=== PATIENT | female | born 1960 | race Caucasian/White ===

== ENCOUNTER 2020-07-27 08:23 | Outpatient (CLI) | payer BC, SELFPAY ==
[2020-07-27 09:47] LABS: Add Urine Microscopic? YES; Appearance Urine Clear (Clear); Bilirubin Urine Negative (Negative); Blood Urine 3+ (Negative); Color Urine Yellow (Yellow); Glucose Urine UA Negative (Negative); Ketones Urine Negative (Negative); Leukocyte Esterase Ur Negative (Negative); Nitrate Urine Negative (Negative); Protein Urine Negative (Negative); Urobilinogen Urine 0.2 mg/dL (0.2-1.0); pH Urine 6.5 (5.0-8.0)
[2020-07-27 09:51] LABS: Basophils Absolute Auto 0.03 K/mm3 (0.00-0.10); Basophils Percent Auto 0.5 % (0.0-1.0); Eosinophils Absolute Auto 0.05 K/mm3 (0.02-0.50); Eosinophils Percent Auto 0.8 % (1.0-6.0); Hematocrit 38.6 % (35.0-49.0); Hemoglobin 12.1 g/dL (12.0-15.0); Immature Granulocyte Absolute 0.01 K/mm3 (0.00-0.00); Immature Granulocyte Percent A 0.2 % (0.0-0.0); Lymphocytes Percent Auto 40.7 % (18.0-42.0); Mean Corpuscular HGB Conc 31.3 g/dL (32.0-36.0); Mean Corpuscular Hemoglobin 29.2 pg (27.0-31.0); Mean Corpuscular Volume 93.2 fL (78.0-102.0); Mean Platelet Volume 10.1 fl (9.2-11.8); Monocytes Absolute Auto 0.39 K/mm3 (0.10-0.90); Monocytes Percent Auto 6.6 % (2.0-11.0); Neutrophils Percent Auto 51.2 % (50.0-70.0); Platelet Count Result 316 K/mm3 (150-420); Red Blood Count 4.14 M/mm3 (4.20-5.40); Red Cell Distribution Width 13.7 % (11.6-14.4); White Blood Count 5.9 K/mm3 (4.8-10.8)
[2020-07-27 10:13] LABS: Bacteria Urine 2+ /hpf; RBC Urine 21-50 /hpf (0-2); Squamous Epithelial Cell Urine Few /hpf (Few); WBC Urine 0-3 /hpf (0-3)
[2020-07-27 10:14] LABS: Mucus Urine Few /lpf
[2020-07-27 10:32] LABS: Alanine Aminotransferase 26 U/L (14-59); Albumin Level 4.1 g/dL (3.4-5.0); Alkaline Phosphatase 84 U/L (46-116); Anion Gap 7 mmol/L (8-16); Aspartate Amino Transferase 16 U/L (15-37); Bilirubin,Total 0.2 mg/dL (0.00-1.00); Blood Urea Nitrogen 18 mg/dL (7-18); Calcium 8.8 mg/dL (8.5-10.1); Carbon Dioxide 31 mmol/L (21-32); Chloride 105 mmol/L (98-108); Cholesterol 213 mg/dL (0-200); Estimated Glomerular Filt Rate > 60; Free T3 2.46 pg/mL (2.18-3.98); Free T4 Free Thyroxine 0.76 ng/dL (0.76-1.46); Glucose 102 mg/dL (70-99); HDL Direct 63 mg/dL (40-60); LDL Cholesterol Calculated 127 mg/dL (<130); Osmolality Calculated 297 mOsm/kg (285-295); Potassium 4.1 mmol/L (3.5-5.1); Sodium 143 mmol/L (136-145); Thyroid Stimulating Hormone 1.91 uIU/mL (0.36-3.74); Total Protein 7.4 g/dL (6.4-8.2); Triglycerides 117 mg/dL (0-150)
== END 2020-07-27 08:24 | disposition home or self-care (01) ==
LOC: CHSLAB 08:27
PROVIDERS: PCP Internal Medicine; Visit Provider Internal Medicine
DX: Z00.00 Encounter for general adult medical examination without abnormal findings (principal); I10 Essential (primary) hypertension; I48.91 Unspecified atrial fibrillation
CPT/HCPCS: 36415; 80053; 80061; 81001; 84439; 84443; 84481; 85025

== ENCOUNTER 2020-08-01 16:02 | Outpatient (CLI) | payer BC, SELFPAY ==
--- NOTE | ~2020-08-01 | CT_ITS ---
EXAMINATION: CT abdomen pelvis wo con DATE: 08/01/2020 17:12 INDICATION: Hematuria TECHNIQUE: Computed tomography (CT) of the abdomen and pelvis was performed without intravenous contr ast. Automated exposure control and iterative reconstruction technique were employed. The dose-length product was 1152.77 mGy-cm. COMPARISON: None FINDINGS: Mild discoid atelectasis at the lingula and anterobasilar left lower lobe. Heart size is normal. No p ericardial or pleural effusion. 1 cm low-attenuation hepatic cyst along the gallbladder fossa. Small phrygian cap at the fundus of the gallbladder. Spleen, pancreas and bilateral adrenal glands are norm al. Kidneys and ureters are normal with no urolithiasis, hydroureteronephrosis or perinephric/uretera l stranding. Bladder is normal. The uterus is not identified and has likely been surgically resected. Bowels including the appendix are normal. Postoperative changes in the left inguinal region with mul tiple surgical clips extending along the left external iliac and common femoral vessels. No free intr aperitoneal gas or fluid. No pathologically enlarged abdominal or pelvic lymphadenopathy. Mild lumbar levocurvature with mild spondylosis. Fusiform intramuscular lipoma extending 12 mm craniocaudally wi thin the proximal left tensor fascia naveen muscle. IMPRESSION: 1. No urolithiasis or acute intra-abdominal/pelvic process. Reviewed, dictated and finalized at location A.
== END 2020-08-01 16:03 | disposition home or self-care (01) ==
LOC: CHSIMG 16:04
PROVIDERS: PCP Internal Medicine; Visit Provider Internal Medicine
DX: R31.9 Hematuria, unspecified (principal)
CPT/HCPCS: 74176

== ENCOUNTER 2021-07-22 06:48 | Emergency (ER) | payer BC, SELFPAY ==
[2021-07-22 07:22] VITALS: BP 147/74; PULSE 65; RESP 18; TEMP 35.8; O2SAT 100
--- NOTE | 2021-07-22 07:35 | ED.URI ---
HPI - URI/Sore Throat General Chief Complaint: Upper Respiratory Infection Stated Complaint: sore throat cough Time Seen by Provider: 07/22/21 07:05 Source: patient and RN notes reviewed Mode of arrival: ambulatory Limitations: no limitations History of Present Illness MD elicited complaint: cough and other (mild right earache) Pertinent past history: other (bronchitis) Onset (ago): day(s) (4) Severity: mild Pain scale (0-10): 0 Exacerbating factors: nothing Relieving factors: OTC cold medicine Associated symptoms: nasal congestion Related Data Home Medications Medication Instructions Recorded Confirmed diltiazem HCl 120 mg PO DAILY 07/22/21 07/22/21 escitalopram oxalate 20 mg PO DAILY 07/22/21 07/22/21 Allergies Allergy/AdvReac Type Severity Reaction Status Date / Time Cephalosporins Allergy Mild HIVES Verified 07/22/21 07:40 Review of Systems Review of Systems: All systems reviewed & are unremarkable except as noted in HPI and below ENT: Reports nasal congestion PMFSH Past Medical History Medical History Bronchitis Exam Const: General: no acute distress Orientation/consciousness: patient oriented x3 HENMT: Ears: external ears normal and TM's normal bilaterally (dull TMs bilateral.) General nose exam: Normal external nose present and Normal nares present Mouth: Yes moist mucous membranes Eyes: Conjunctivae: conjunctivae normal Pupils: Equal, round and reactive pupils present EOM: EOMs intact bilaterally Neck: Neck: normal visual inspection Chest: Chest palpation & inspection: normal inspection of the chest Resp: Effort & Inspection: normal respiratory effort Auscultation: clear to auscultation bilaterally Cardio: Rate: regular rate Rhythm: regular rhythm GI: GI Palp: Yes Soft to palpation (non-tender) Percussion: Yes normal to percussion : General: Yes bladder normal to palpation and Yes no CVA tenderness Back/Spine/Pelvis: Back: no CVA tenderness Skin: General skin exam: normal color Rashes: no rashes Neuro: General: patient oriented x3, moves all extremities, no meningeal signs, no focal motor deficits and CN's II-XI intact bilaterally Extrem: General: normal to inspection and no pedal edema Psych: Appearance: grossly normal and well kempt Mental Status: mental status grossly normal Affect: normal affect Attitude: cooperative Thought content: Yes Normal thought content present Course Course Emergency Course: Stable pt. mild cough, no acute wheezing or rhonchi. Reevaluation(s) Date: 07/22/21 Time: 07:35 Vital Signs Vital signs: Vital Signs Temperature 35.8 C L 07/22/21 07:22 Pulse Rate 65 07/22/21 07:22 Respiratory Rate 18 07/22/21 07:22 Blood Pressure 147/74 H 07/22/21 07:22 Pulse Oximetry 100 07/22/21 07:22 Temperature 35.8 C L 07/22/21 07:22 Pulse Rate 65 07/22/21 07:22 Respiratory Rate 18 07/22/21 07:22 Blood Pressure 147/74 H 07/22/21 07:22 Pulse Oximetry 100 07/22/21 07:22 MDM - URI/Sore Throat Differential Diagnosis Differential diagnosis: Likely upper respiratory infection, otitis media, sinusitis, viral infection, bronchitis and pharyngitis Medical Records Attestation: I reviewed the patient's medical records. Lab Data Attestation: I reviewed the patient's lab results. Labs: Lab Results 07/22/21 Range/Units 07:33 Grp A Beta Strep Ag Pending Critical Care Time Critical Care Time Critical Care Time: No Total Critical Care Time: 0 Discharge Plan Discharge Clinical Impression: Upper respiratory infection Patient Disposition: Home, Self-Care Condition: Stable Instructions: Antibiotic Form, Viral Syndrome (ED) Additional Instructions: Home. May RTC prn. PMD in 1-2 days. Rx below. Off work x 2 days. Prescriptions: New amoxicillin 875 mg tablet 875 mg PO Q12H Qty: 20 RF: 0 Mucinex DM 30-600 mg tablet extended release
[2021-07-22] MEDS: guaiFENesin 12 HR 600 MG TABCR PO (07:50)
== END 2021-07-22 08:04 | disposition home or self-care (01) ==
PROVIDERS: Emergency Provider Emergency Medicine; PCP Internal Medicine
DX: J06.9 Acute upper respiratory infection, unspecified (principal)
CPT/HCPCS: 87081; 87880; 99283; A9270

== ENCOUNTER 2021-08-22 10:23 | Outpatient (CLI) | payer BC, SELFPAY ==
[2021-08-22 10:41] LABS: Basophils Absolute Auto 0.02 K/mm3 (0.00-0.10); Basophils Percent Auto 0.3 % (0.0-1.0); Eosinophils Absolute Auto 0.06 K/mm3 (0.02-0.50); Hematocrit 40.7 % (35.0-49.0); Hemoglobin 13.4 g/dL (12.0-15.0); Immature Granulocyte Absolute 0.01 K/mm3 (0.00-0.00); Immature Granulocyte Percent A 0.2 % (0.0-0.0); Lymphocytes Absolute Auto 2.45 K/mm3 (1.10-4.50); Lymphocytes Percent Auto 41.6 % (18.0-42.0); Mean Corpuscular HGB Conc 32.9 g/dL (32.0-36.0); Mean Corpuscular Volume 91.3 fL (78.0-102.0); Mean Platelet Volume 9.4 fl (9.2-11.8); Monocytes Absolute Auto 0.48 K/mm3 (0.10-0.90); Monocytes Percent Auto 8.1 % (2.0-11.0); Neutrophils Absolute Auto 2.9 K/mm3 (1.7-7.2); Neutrophils Percent Auto 48.8 % (50.0-70.0); Platelet Count Result 308 K/mm3 (150-420); Red Blood Count 4.46 M/mm3 (4.20-5.40); Red Cell Distribution Width 13.8 % (11.6-14.4); White Blood Count 5.9 K/mm3 (4.8-10.8)
[2021-08-22 10:44] LABS: Add Urine Microscopic? YES; Appearance Urine Clear (Clear); Bilirubin Urine Negative (Negative); Blood Urine 3+ (Negative); Color Urine Yellow (Yellow); Glucose Urine UA Negative (Negative); Ketones Urine Negative (Negative); Leukocyte Esterase Ur Negative (Negative); Nitrate Urine Negative (Negative); Protein Urine Negative (Negative); Specific Grav Ur 1.025 (1.010-1.020); Urobilinogen Urine 0.2 mg/dL (0.2-1.0)
[2021-08-22 10:48] LABS: Bacteria Urine Trace /hpf; Squamous Epithelial Cell Urine Few /hpf (Few); WBC Urine None seen /hpf (0-3)
[2021-08-22 11:36] LABS: Alanine Aminotransferase 31 U/L (14-59); Alkaline Phosphatase 98 U/L (46-116); Anion Gap 9 mmol/L (8-16); Aspartate Amino Transferase 13 U/L (15-37); Bilirubin,Total 0.3 mg/dL (0.00-1.00); Blood Urea Nitrogen 22 mg/dL (7-18); Calcium 9.1 mg/dL (8.5-10.1); Carbon Dioxide 32 mmol/L (21-32); Chloride 103 mmol/L (98-108); Cholesterol 215 mg/dL (0-200); Estimated Glomerular Filt Rate > 60; Glucose 97 mg/dL (70-99); HDL Direct 67 mg/dL (40-60); LDL Cholesterol Calculated 128 mg/dL (<130); Osmolality Calculated 301 mOsm/kg (285-295); Potassium 4.5 mmol/L (3.5-5.1); Sodium 144 mmol/L (136-145); Thyroid Stimulating Hormone 1.82 uIU/mL (0.36-3.74); Total Protein 7.3 g/dL (6.4-8.2); Triglycerides 100 mg/dL (0-150)
== END 2021-08-22 10:24 | disposition home or self-care (01) ==
LOC: CHSLAB 10:27
PROVIDERS: PCP Internal Medicine; Visit Provider Internal Medicine
DX: Z00.00 Encounter for general adult medical examination without abnormal findings (principal)
CPT/HCPCS: 36415; 80053; 80061; 81001; 84443; 85025

== ENCOUNTER 2021-09-03 17:05 | Outpatient (CLI) | payer BC, SELFPAY ==
--- NOTE | ~2021-09-03 | XR_ITS ---
XR chest 2V DATE: 09/03/2021 17:25 INDICATION: Cough, shortness of breath TECHNIQUE: 2 views COMPARISON: None FINDINGS: Thoracic and lumbar scoliosis. Osteopenia. No pulmonary infiltrate or consolidation, pleural effusion or pulmonary vascular congestion or pneumo thorax. Normal heart size. Aortic calcification. IMPRESSION: No active cardiopulmonary disease Reviewed, dictated and finalized at location A.
== END 2021-09-03 17:06 | disposition home or self-care (01) ==
LOC: CHSIMG 17:06
PROVIDERS: PCP Internal Medicine; Visit Provider Internal Medicine
DX: R05.3 Chronic cough (principal)
CPT/HCPCS: 71046

== ENCOUNTER 2022-05-25 16:34 | Outpatient (CLI) | payer BC, SELFPAY ==
--- NOTE | ~2022-05-25 | XR_ITS ---
EXAM: XR hip RT min 2V DATE: 05/25/2022 17:08 HISTORY: ALL over RT hip pain traveling down towards RT knee x 1 yr . COMPARISON: None available. FINDINGS: Normal mineralization. No fracture or dislocation. No lytic or blastic lesion. Mild superi or hip joint space narrowing. No erosion or periosteal change. Soft tissues within normal limits. IMPRESSION: Mild right hip osteoarthritis. Reviewed, dictated and finalized at location K.
--- NOTE | ~2022-05-25 | XR_ITS ---
XR knee RT 3V 05/25/2022 17:09 Indication: Right knee pain Procedure: 3 views right knee Comparison: No prior studies for comparison. Findings: No fracture, subluxation or dislocation. No significant joint effusion. There is anatomic a lignment. Normal mineralization. Impression: 1: No significant bone or joint abnormality. Reviewed, dictated and finalized at location A. Impression: 1: No significant bone or joint abnormality.
== END 2022-05-25 16:35 | disposition home or self-care (01) ==
LOC: CHSIMG 16:36
PROVIDERS: PCP Internal Medicine; Visit Provider Internal Medicine
DX: M79.604 Pain in right leg (principal); M25.561 Pain in right knee
CPT/HCPCS: 73502; 73562

== ENCOUNTER 2022-08-19 16:30 | Outpatient (CLI) | payer BC, SELFPAY ==
--- NOTE | ~2022-08-19 | XR_ITS ---
EXAMINATION: XR chest 2V Exam Date/Time: 08/19/2022 16:40 CDT HISTORY: Cough X 1 WEEK Comparison: 09/03/2021. RESULT: Lines, tubes, and devices: None. Lungs and pleura: Clear. Cardiomediastinal silhouette: Stable. Other: No acute osseous or upper abdominal finding. IMPRESSION: No acute cardiopulmonary process. Reviewed, dictated and finalized at location K.
== END 2022-08-19 16:31 | disposition home or self-care (01) ==
LOC: CHSIMG 16:32
PROVIDERS: PCP Internal Medicine; Visit Provider Internal Medicine
DX: R05.9 Cough, unspecified (principal)
CPT/HCPCS: 71046

== ENCOUNTER 2022-08-21 12:26 | Outpatient (CLI) | payer BC, SELFPAY ==
[2022-08-21 12:39] LABS: Basophils Absolute Auto 0.03 K/mm3 (0.00-0.10); Basophils Percent Auto 0.2 % (0.0-1.0); Eosinophils Absolute Auto 0.01 K/mm3 (0.02-0.50); Eosinophils Percent Auto 0.1 % (1.0-6.0); Hematocrit 37.9 % (35.0-49.0); Hemoglobin 12.4 g/dL (12.0-15.0); Immature Granulocyte Absolute 0.11 K/mm3 (0.00-0.00); Immature Granulocyte Percent A 0.9 % (0.0-0.0); Lymphocytes Absolute Auto 4.15 K/mm3 (1.10-4.50); Lymphocytes Percent Auto 32.6 % (18.0-42.0); Mean Corpuscular HGB Conc 32.7 g/dL (32.0-36.0); Mean Corpuscular Hemoglobin 29.6 pg (27.0-31.0); Mean Corpuscular Volume 90.5 fL (78.0-102.0); Mean Platelet Volume 9.6 fl (9.2-11.8); Monocytes Absolute Auto 0.54 K/mm3 (0.10-0.90); Monocytes Percent Auto 4.2 % (2.0-11.0); Neutrophils Absolute Auto 7.9 K/mm3 (1.7-7.2); Platelet Count Result 328 K/mm3 (150-420); Red Blood Count 4.19 M/mm3 (4.20-5.40); Red Cell Distribution Width 13.8 % (11.6-14.4); White Blood Count 12.7 K/mm3 (4.8-10.8)
[2022-08-21 12:53] LABS: Alanine Aminotransferase 36 U/L (14-59); Alkaline Phosphatase 99 U/L (46-116); Anion Gap 8 mmol/L (8-16); Aspartate Amino Transferase 26 U/L (15-37); Bilirubin,Total 0.2 mg/dL (0.00-1.00); Blood Urea Nitrogen 19 mg/dL (7-18); Calcium 9.2 mg/dL (8.5-10.1); Carbon Dioxide 31 mmol/L (21-32); Chloride 102 mmol/L (98-108); Estimated Glomerular Filt Rate > 60; Glucose 140 mg/dL (70-99); Osmolality Calculated 296 mOsm/kg (285-295); Potassium 3.7 mmol/L (3.5-5.1); Sodium 141 mmol/L (136-145)
[2022-08-21 12:54] LABS: INR 1.1; Prothrombin Time 11.6 Seconds (9.50-12.10)
== END 2022-08-21 12:27 | disposition home or self-care (01) ==
LOC: CHSLAB 12:28
PROVIDERS: PCP Internal Medicine; Visit Provider Internal Medicine
DX: K92.1 Melena (principal)
CPT/HCPCS: 36415; 80053; 85025; 85610; 85730

== ENCOUNTER 2022-08-23 14:34 | Outpatient (CLI) | payer BC, SELFPAY ==
[2022-08-23 14:55] LABS: Occult Blood Negative (Negative)
[2022-08-23 14:55] LABS: Occult Blood Negative (Negative)
== END 2022-08-23 14:35 | disposition home or self-care (01) ==
LOC: CHSLAB 14:35
PROVIDERS: PCP Internal Medicine; Visit Provider Internal Medicine
DX: K92.1 Melena (principal)
CPT/HCPCS: 82272

== ENCOUNTER 2022-08-27 16:47 | Outpatient (CLI) | payer BC, SELFPAY ==
[2022-08-27 16:59] LABS: Hematocrit 36.8 % (35.0-49.0); Hemoglobin 11.8 g/dL (12.0-15.0)
== END 2022-08-27 16:48 | disposition home or self-care (01) ==
LOC: CHSLAB 16:49
PROVIDERS: PCP Internal Medicine; Visit Provider Internal Medicine
DX: D64.9 Anemia, unspecified (principal)
CPT/HCPCS: 36415; 85014; 85018

== ENCOUNTER 2022-09-12 08:11 | Outpatient (CLI) | payer BC, SELFPAY ==
[2022-09-12 08:27] LABS: Add Urine Microscopic? YES; Appearance Urine Clear (Clear); Basophils Absolute Auto 0.02 K/mm3 (0.00-0.10); Basophils Percent Auto 0.3 % (0.0-1.0); Bilirubin Urine Negative (Negative); Blood Urine 3+ (Negative); Color Urine Yellow (Yellow); Eosinophils Absolute Auto 0.08 K/mm3 (0.02-0.50); Eosinophils Percent Auto 1.2 % (1.0-6.0); Glucose Urine UA Negative (Negative); Hematocrit 37.1 % (35.0-49.0); Hemoglobin 11.7 g/dL (12.0-15.0); Immature Granulocyte Absolute 0.03 K/mm3 (0.00-0.00); Immature Granulocyte Percent A 0.4 % (0.0-0.0); Ketones Urine Negative (Negative); Leukocyte Esterase Ur Negative (Negative); Lymphocytes Percent Auto 43.3 % (18.0-42.0); Mean Corpuscular HGB Conc 31.5 g/dL (32.0-36.0); Mean Corpuscular Hemoglobin 29.5 pg (27.0-31.0); Mean Corpuscular Volume 93.5 fL (78.0-102.0); Mean Platelet Volume 9.6 fl (9.2-11.8); Monocytes Absolute Auto 0.57 K/mm3 (0.10-0.90); Monocytes Percent Auto 8.5 % (2.0-11.0); Neutrophils Absolute Auto 3.1 K/mm3 (1.7-7.2); Neutrophils Percent Auto 46.3 % (50.0-70.0); Nitrate Urine Negative (Negative); Platelet Count Result 317 K/mm3 (150-420); Protein Urine Negative (Negative); Red Blood Count 3.97 M/mm3 (4.20-5.40); Red Cell Distribution Width 14.2 % (11.6-14.4); Specific Grav Ur 1.015 (1.010-1.020); Urobilinogen Urine 0.2 mg/dL (0.2-1.0); White Blood Count 6.7 K/mm3 (4.8-10.8); pH Urine 6.5 (5.0-8.0)
[2022-09-12 08:54] LABS: Bacteria Urine Trace /hpf; Other Sediment Urine Spermatazoa /hpf; Squamous Epithelial Cell Urine Rare /hpf (Few); WBC Urine None seen /hpf (0-3)
[2022-09-12 09:15] LABS: Alanine Aminotransferase 27 U/L (14-59); Albumin Level 3.8 g/dL (3.4-5.0); Alkaline Phosphatase 97 U/L (46-116); Anion Gap 8 mmol/L (8-16); Aspartate Amino Transferase 17 U/L (15-37); Bilirubin,Total 0.3 mg/dL (0.00-1.00); Blood Urea Nitrogen 16 mg/dL (7-18); Calcium 8.5 mg/dL (8.5-10.1); Carbon Dioxide 29 mmol/L (21-32); Chloride 105 mmol/L (98-108); Cholesterol 215 mg/dL (0-200); Estimated Glomerular Filt Rate 58; Glucose 103 mg/dL (70-99); HDL Direct 54 mg/dL (40-60); LDL Cholesterol Calculated 139 mg/dL (<130); Osmolality Calculated 295 mOsm/kg (285-295); Potassium 3.8 mmol/L (3.5-5.1); Sodium 142 mmol/L (136-145); Triglycerides 109 mg/dL (0-150)
== END 2022-09-12 08:12 | disposition home or self-care (01) ==
PROVIDERS: PCP Internal Medicine; Visit Provider Internal Medicine
DX: Z00.00 Encounter for general adult medical examination without abnormal findings (principal)
CPT/HCPCS: 36415; 80053; 80061; 81001; 84443; 85025

== ENCOUNTER 2023-02-02 10:14 | Outpatient (CLI) | payer BC, SELFPAY ==
--- NOTE | ~2023-02-02 | XR_ITS ---
EXAMINATION: XR sinus min 3V DATE: 02/02/2023 10:39 INDICATION: Head congestion. TECHNIQUE: 5 views of the paranasal sinuses were obtained. COMPARISON: None. FINDINGS: There is mild upward deviation the nasal septum. There is moderate mucosal thickening in le ft maxillary sinus and mild mucosal thickening in right maxillary sinus. IMPRESSION: 1. Mucosal thickening in the maxillary sinuses, left worse than right. Reviewed, dictated and finalized at location A.
== END 2023-02-02 10:15 | disposition home or self-care (01) ==
LOC: CHSLAB 10:19
PROVIDERS: PCP Internal Medicine; Visit Provider Nurse Practitioner Family
DX: R09.81 Nasal congestion (principal); J32.0 Chronic maxillary sinusitis
CPT/HCPCS: 70220

== ENCOUNTER 2023-02-25 13:23 | Outpatient (CLI) | payer BC, SELFPAY ==
--- NOTE | ~2023-02-25 | DEXA_ITS ---
Bone Density Report Name: HUMPHREY BLANCO Age: 62 Sex: Female Ethnicity: White Date of : 1960 Indication: postmenopausal; screening for osteoporosis; height loss; cancer; hysterectomy; Referring Provider: Dexter Stanford Study: Bone densitometry was performed. Exam Date: February 25, 2023 Accession number: [id number] Bone Density: Region BMD T-score Z-score Classification AP Spine(L1, L3, L4) 0.900 -1.4 0.1 Osteopenia Femoral Neck (Left) 0.742 -1.0 0.4 Normal Total Hip (Left) 0.885 -0.5 0.6 Normal Femoral Neck (Right) 0.779 -0.6 0.7 Normal Total Hip (Right) 0.977 0.3 1.3 Normal Femoral Neck Mean 0.761 -0.8 0.6 Normal Total Hip Mean 0.931 -0.1 0.9 Normal World Health Organization criteria for BMD impression classify patients as: Normal (T-score at or above -1.0), Osteopenia (T-score between -1.0 and -2.5), or Osteoporosis (T-score at or below -2.5). 10-year Fracture Risk(1): Major Osteoporotic Fracture 6.6% Hip Fracture 0.3% Reported Risk Factors: [place] (), Neck BMD=0.742, BMI=40.7 (1) FRAX(R) Version 3.08. Fracture probability calculated for an untreated patient. Fracture probability may be lower if the patient has received treatment. Clinical Information Provided by Patient: Has used the following medications: Vitamin D, Calcium, multivitiam Has the following medical conditions: Cancer, Hysterectomy Patient maximum height was 64 Menopause Age: 51 No regular weight bearing exercise Drinks caffeinated beverages Onset of menses at age 14 Number of children 2 Impression: The patient has low bone mass, based on the Total Spine T-score. Discussion: BONE DENSITY IS LOW AT ONE OR MORE SKELETAL SITES. This patient's lowest T-score is low at one or more skeletal sites. It meets the World Health Organization's (WHO) criteria for ?low bone mass? (T-score between -1.0 and -2.5). The patient's 10-year risk of fracture as calculated by FRAX is less than the threshold where pharmacological therapy is recommended by the National Osteoporosis Foundation (NOF). However, all treatment decisions require clinical judgment and consideration of individual patient factors, including patient preferences, comorbidities, previous drug use, risk factors not captured in the FRAX model (e.g., frailty, falls, vitamin D deficiency, increased bone turnover, interval significant decline in bone density) and possible under or overestimation of fracture risk by FRAX. The patient should follow a healthful lifestyle (good nutrition with adequate calcium and vitamin D, and appropriate weight-bearing exercise). Follow-Up: Consider repeating this study in 2 to 3 years to reassess this patient's status, or sooner if there is some new clinical indication. Reported by: Dr. Hurley
== END 2023-02-25 13:24 | disposition home or self-care (01) ==
LOC: CHSIMG 13:30
PROVIDERS: PCP Internal Medicine; Visit Provider Internal Medicine
DX: M81.0 Age-related osteoporosis without current pathological fracture (principal); D64.9 Anemia, unspecified; M85.88 Other specified disorders of bone density and structure, other site
CPT/HCPCS: 77080

== ENCOUNTER 2023-07-16 13:42 | Outpatient (CLI) | payer BC, SELFPAY ==
--- NOTE | 2023-07-16 13:47 | ECG_ITS ---
Measurements Intervals [place] Rate: 54 P: 65 IN: 123 QRS: 54 QRSD: 113 T: 38 QT: 454 QTc: 431 Interpretive Statements SINUS BRADYCARDIA INTRAVENTRICULAR CONDUCTION DELAY MINIMAL Q WAVES- INFERIOR LEADS BASELINE ARTIFACT- II, III, AVF, V4-V6 BORDERLINE ECG NO PREVIOUS ECG AVAILABLE FOR COMPARISON Electronically Signed On 07-16-2023 20:44:26 CDT by Jacques Pierre D.O.
== END 2023-07-16 13:43 | disposition home or self-care (01) ==
LOC: CHSCARD 13:44
PROVIDERS: PCP Internal Medicine; Visit Provider Internal Medicine
DX: R07.9 Chest pain, unspecified (principal)
CPT/HCPCS: 93005

== ENCOUNTER 2023-08-05 12:25 | Outpatient (CLI) | payer BC, SELFPAY ==
--- NOTE | ~2023-08-05 | CT_ITS ---
EXAMINATION:CT diagnostic chest wo con DATE: 08/05/2023 14:58 INDICATION: Dyspnea. TECHNIQUE: Computed tomography (CT) of the chest was performed without intravenous contrast. Automate d exposure control and iterative reconstruction technique were employed. The dose-length product (DLP ) was 658.15 mGy-cm. COMPARISON: CT abdomen and pelvis 08/01/2020 FINDINGS: There is mild atelectasis in left upper lobe and right middle lobe. No pleural effusion. Th e heart size is normal. No pericardial effusion. There is levoscoliosis of upper thoracic spine. IMPRESSION: 1. No etiology for the patient's symptoms. Reviewed, dictated and finalized at location E.
--- NOTE | 2023-08-06 08:53 | WPDPFTINT ---
PFT Procedure Performed PFT Procedure Performed Spirometry with Pre/Post Bronchodilator Plethysmography (Lung Vol) Diffusing Cap (DLCO) Flow Vol Loop PFT Interpretation Lung volumes were measured with the body plethysmography method. The diminished expiratory reserve volume is related to obesity. The remaining lung volumes are unremarkable. Spirometry showed normal expiratory flow rates and a normal FEV1 to FVC ratio 76%. Following administration of a bronchodilator there was no significant increase in the expiratory flow rates. Lung diffusion capacity is within the normal range at 92%. The flow-volume loop is unremarkable. Impression: Spirometry, lung volumes, and lung diffusion capacity all within the normal range.
--- NOTE | 2023-08-09 11:54 | WPDSIXMINUTE ---
Six Minute Walk Procedure Procedure Performed Pulmonary Stress Test (6 min walk) Six Minute Walk Six Minute Walk: This is a 6 minute walk test. The test was performed and interpreted in accordance with the 2014 ERS/ATS task force guidelines. Findings: The patient's resting room air oxygen saturation measured by pulse oximetry was 96% and heart rate was 60 bpm. Patient ambulated for 488 meters and oxygen saturation remained 94 to 97%. Heart rate at the end of the study was 89 bpm. The patient did not qualify for supplemental oxygen at rest or with ambulation. There are no prior studies for comparison.
== END 2023-08-05 12:26 | disposition home or self-care (01) ==
PROVIDERS: PCP Internal Medicine; Visit Provider Physician Assistant
DX: R06.00 Dyspnea, unspecified (principal); R05.9 Cough, unspecified; Z87.891 Personal history of nicotine dependence
CPT/HCPCS: 71250; 94060; 94618; 94726; 94729

== ENCOUNTER 2023-08-27 10:20 | Outpatient (CLI) | payer BC, SELFPAY ==
[2023-08-27 11:29] LABS: SARS-CoV-2 RNA PCR Negative (Negative)
== END 2023-08-27 10:21 | disposition home or self-care (01) ==
LOC: CHSLAB 10:22
PROVIDERS: PCP Internal Medicine; Visit Provider Nurse Practitioner Family
DX: J06.9 Acute upper respiratory infection, unspecified (principal)
CPT/HCPCS: 87635

== ENCOUNTER 2023-09-21 08:31 | Outpatient (CLI) | payer BC, SELFPAY ==
--- NOTE | ~2023-09-21 | XR_ITS ---
XR knee LT min 4V 09/21/2023 09:00 INDICATION: Left knee pain PROCEDURE: 4 views left knee COMPARISON: No prior studies for comparison. FINDINGS: Fracture, dislocation or subluxation is not identified. No significant joint effusion. The soft tissues appear within normal limits. No foreign bodies are identified. IMPRESSION: 1: NO ACUTE BONE OR JOINT ABNORMALITY IDENTIFIED. Reviewed, dictated and finalized at location L. 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
== END 2023-09-21 08:32 | disposition home or self-care (01) ==
LOC: CHSIMG 08:34
PROVIDERS: PCP Internal Medicine; Visit Provider Orthopaedic Surgery
DX: M25.562 Pain in left knee (principal)
CPT/HCPCS: 73564

== ENCOUNTER 2023-10-07 08:51 | Outpatient (CLI) | payer BC, SELFPAY ==
--- NOTE | ~2023-10-07 | MR_ITS ---
MRI of the left knee Clinical history: Medial meniscal tear Technique: Coronal proton density and proton density-weighted images, sagittal proton-density and T2 fat-sat images, and axial proton-density fat-saturated images were acquired. Findings: Anterior and posterior cruciate ligaments are intact. Medial collateral ligament and the la teral collateral ligament complex are intact. Popliteus tendon is intact. Radial tear at the posterior root of the medial meniscus is present. No lateral meniscal tear seen. There is high-grade chondromalacia over the medial patellar facet. There is mild chondral thinning in the medial and lateral compartments. Extensor mechanism is intact. Small joint effusion present. [id number] Marti's cyst present. Impression: Radial tear at the posterior to the medial meniscus. 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 Small joint effusion with small to moderate Marti's cyst. Reviewed, dictated and finalized at [facility]. HOUSEKEEPER Impression: Radial tear at the posterior to the medial meniscus. 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 Small joint effusion with small to moderate Marti's cyst.
== END 2023-10-07 08:52 | disposition home or self-care (01) ==
LOC: CHSIMG 08:52
PROVIDERS: PCP Internal Medicine; Visit Provider Orthopaedic Surgery
DX: S89.92XA Unspecified injury of left lower leg, initial encounter (principal); S83.242A Other tear of medial meniscus, current injury, left knee, initial encounter; M22.42 Chondromalacia patellae, left knee; M25.462 Effusion, left knee; M71.22 Synovial cyst of popliteal space [Baker], left knee
CPT/HCPCS: 73721

== ENCOUNTER 2023-12-01 00:21 | Day surgery (SDC) | payer BC, SELFPAY ==
[2023-11-24 17:52] VITALS: BMI 41.0
--- NOTE | 2023-11-25 07:29 | SUR.PREOP ---
Addendum entered by Marbella Phillips RN 11/25/23 07:34: hold spironolactone morning of surgery Original Note: Report to the Outpatient Waiting Room, entrance under the green pavilion located off [facility], at time 1015 on date 12/01/23. Planned Procedure Time: 1215. Time changes happen often and if your time is changed the preop area will call you the afternoon before. - You and your visitor will be asked to self-screen and do not enter if you have any COVID symptoms. - A mask is optional within the hospital at this time. Patients may have clear liquids (water, carbonated beverages, clear teas, apple juice) until 3 hours prior to surgery with a maximum of 20 ounces. - No food from midnight until time of surgery clear liquid before 0915am - Infants may have breast milk until 4 hours before surgery, formula 6 hours prior to surgery. - Children will be allowed to drink immediately following surgery. If applicable, please bring a bottle or sippy cup to assist with drinking. Juice, water, soda, and popsicles are readily available. For infants on formula, please bring formula the day of surgery. Pacifiers are allowed. Take the following medications with a SIP of water the morning of surgery: __no morning medications day of surgery____ DO NOT STOP ANY OF YOUR OTHER PRESCRIPTION MEDICATIONS PRIOR TO SURGERY ?EXCEPT THE FOLLOWING Medications to discontinue per physician hold Xarelto per MD, supplements/vitamins 3 days prior. hold losartan/HCTZ morning of surgery Date to take last dose Please no make-up, nail saudi [place]ian, hairspray, perfume, deodorant, or body powder the day of surgery. No jewelry (including any body piercings) or valuables the day of surgery, leave them at home. Please take a shower or bath the night before, or the morning of, surgery with an antibacterial soap. Wear comfortable, loose fitting clothing. Children are encouraged to wear pajamas. - Jewelry must be removed prior to entering the operating room. Rings and piercings that are not removed may be cut off. - The hospital will not accept responsibility for valuables. - Please leave all valuables, including medications, at home the day of surgery. If you are going home after surgery, a licensed diesel pile driver operator must drive you home. - NO public transportation without another adult if you receive anesthesia. - We recommend that an adult stay with you for 24 hours following discharge. - We also recommend that you do not drive, make important decision, drink alcoholic beverages, or take any drugs that were not prescribed by your health care provider for at least 24 hours after your discharge time. For Pediatric surgeries, we recommend two adults accompany the child home. Follow any additional instructions given to you from your surgeon. If you or anyone in your household have experienced Covid symptoms in the past week, please notify your surgeon or the nurse liaison at the phone number below for possible testing. Telephone instructions given to __patient__and asked if any additional questions and then verbalized understanding. Patient advised to call surgeon office or pre surgery nurse liaison [phone] if any additional questions.
[2023-12-01] VITALS (9 sets, daily range): BP systolic 103–159; BP diastolic 62–83; PULSE 56–72; RESP 10–16; TEMP 36.1–36.4; O2SAT 92–100
--- NOTE | 2023-12-01 07:18 | WPDHPUPDATE1 ---
History and Physical Update Update Date/Time: 12/01/23 07:18 History and Physical has been reviewed, including an updated exam of the patient. There are NO changes in the patient's condition. Risks, benefits, and alternatives have been discussed and questions answered. Patient agrees to proceed with procedure.
[2023-12-01] MEDS: LACTATED RINGERS 1,000 ML 30 ML IV CONT ×2 (11:00→14:03)
[2023-12-01] MEDS: CELECOXIB 200 MG CAPSULE PO (12:00)
[2023-12-01] MEDS: ACETAMINOPHEN 500 MG TABLET 1000 MG PO (12:00)
--- NOTE | 2023-12-01 12:47 | WPDANESEPPF ---
Anes - Initial Pre Proc Eval Procedure: Operation Date: 12/01/23 12:15 Proposed Procedures p Left Knee Arthroscopy, Proceed As Indicated - Pablo Ortiz MD Date/Time: 12/01/23 12:47 Surgeon: Pablo Ortiz MD Pre Op Diagnosis: Left Knee medial Meniscus tear Patient Data Age: 63 Gender: F Height: 1.63 m Weight: 108.3 kg Last Vital Signs Temp 36.1 C L 12/01/23 12:24 Pulse 72 12/01/23 12:24 Resp 16 12/01/23 12:24 BP 150/72 H 12/01/23 12:24 Pulse Ox 99 12/01/23 12:24 O2 Del Method Room Air 12/01/23 12:24 Allergies Allergy/AdvReac Type Severity Reaction Status Date / Time Cephalosporins Allergy Mild HIVES Verified 11/24/23 08:29 Home Medications Medication Instructions Recorded Confirmed Type diltiazem HCl 120 mg 120 mg PO DAILY 07/22/21 12/01/23 History capsule,extended release 24 hr escitalopram oxalate 20 mg tablet 20 mg PO DAILY 07/22/21 12/01/23 History ascorbic acid (vitamin C) 500 mg 500 mg PO DAILY 06/29/23 12/01/23 History tablet cholecalciferol (vitamin D3) 125 125 mcg PO DAILY 06/29/23 12/01/23 History mcg (5,000 unit) tablet magnesium 250 mg tablet 250 mg PO DAILY 06/29/23 12/01/23 History rivaroxaban 20 mg tablet (Xarelto) 20 mg PO DAILY 06/29/23 12/01/23 History vitamin B complex (B 1 tablet PO DAILY 06/29/23 12/01/23 History Complex-Vitamin B12 tablet) calcium citrate 250 mg PO BID 07/02/23 12/01/23 History spironolactone 25 mg tablet 25 mg PO DAILY 10/21/23 12/01/23 History losartan 100 1 tablet PO DAILY 11/25/23 12/01/23 History mg-hydrochlorothiazide 12.5 mg tablet chlorhexidine gluconate 4 % 1 applic topical DAILY #237 mL 11/30/23 12/01/23 Rx topical liquid (Hibiclens) hydrocodone 5 mg-acetaminophen 325 1 tablet PO Q12H PRN pain #20 tabs 12/01/23 Rx mg tablet Patient hx anesthesia problems: none Family hx anesthesia problems: none Results Review: All pre-operative results and documents have been reviewed as part of the pre-operative evaluation. [facility] Past Medical History Medical History Bronchitis Colonic polyp Ear drum wound Headache Hypertension Left knee pain Melanoma Surgical History Surgical History H/O breast biopsy H/O section H/O: hysterectomy Family History Family History Father Heart disease Mother Diabetes mellitus Heart disease Cancer of unknown origin Sibling Diabetes mellitus Other Diabetes mellitus Grandparent Cancer of unknown origin Diabetes mellitus Social History Social History Social History: quit smoking 1982 Smoking status: Never smoker Alcohol intake: never Substance use type: does not use Do You Feel Safe in your Home?: Yes Lack of Transportation: No Lack of Food: Never True Current Housing: I Have Housing Concerned About Future Housing: No Difficulty Paying Gas/Electric Bills: No Difficulty Paying for Meds: No Currently Unemployed: No Education: High School Diploma/GED Difficulty w/ Childcare or Family Care: No Living arrangements: with family Gender identity (if verbalized by the patient): Female Anes - Eval Final PreProcedure Day of Procedure 12/01/23 12:47 Patient weight: morbidly obese Heart: regular rate and rhythm Lungs: decreased breath sounds Airway: Mallampati scale class II Neurological: alert and oriented Last oral intake: >/= 8 hours ASA classification: III Emergent: no Anesthetic plan: proceed Anesthesia type and monitoring: general LMA and standard monitoring Results Review: All pre-operative results and documents have been reviewed as part of the pre-operative evaluation. Informed Consent: The patient's anesthetic plan and its attendant risks and benefits were discuss
[2023-12-01] MEDS: CLINDAMYCIN 900 MG/D5W 50 ML 900 MG/50 ML PIGGYBACK 50 MG IVPB (12:59)
[2023-12-01] MEDS: BUPivacaine HCL 0.5% 10 ML AMP 30 ML INFILTRATE (13:19)
--- NOTE | 2023-12-01 14:05 | W.PM.PROC2 ---
Procedure Note - Detailed Date of Procedure 12/01/23 Pre-op Diagnosis Left Knee medial Meniscus tear Post-op Diagnosis Same (with lateral meniscus tear as well) Procedure Performed LEFT KNEE SCOPE Surgeon Pablo Ortiz MD Anesthesia General Description of Procedure PATIENT WAS TAKEN TO THE OR. LEFT LEG WAS PREPPED AND DRAPED STERILE. TROCARS WERE PLACED IN THE USUAL FASHION. CAMERA WAS INTRODUCED. THERE WAS A LOOSE BODY IN THE SUPRA PATELLA POUCH. THERE WAS CHONDROMALACIA TO THE PATELLA FEMORAL JOINT. THERE WAS A LOT OF SYNOVITIS IN ALL COMPARTMENTS. THE MEDIAL COMPARTMENT SHOWED CHONDROMALACIA WITH A CHONDRAL DEFECT TO THE MEDIAL FEMORAL CONDYLE. THERE WAS NO FULL THICKNESS DEFECT. A SHAVER WAS USED TO PREFORM A CHONDROPLASTY. THERE WAS A COMPLEX MEDIAL MENISCUS TEAR. THE TEAR WAS RESECTED WITH A BITER AND A SHAVER DOWN TO A SMOOTH BASE. ABOUT 20% OF THE MENISCUS WAS REMOVED. THE ACL WAS INTACT. THE LATERAL MENISCUS WAS TORN AND WAS RESECTED AT THE MID SUBSTANCE. THE LATERAL COMPARTMENT HAD GRADE 2 CHONDROMALACIA. CHONDROPLASTY WAS PREFORMED. A SYNOVECTOMY WAS PREFORMED WELL. THE PATELLO FEMORAL JOINT UNDERWENT CHONDROPLASTY. THERE WAS GRADE 3 AND 4 CHONDROMALACIA IN PART OF THE TROCHLEA AND PART OF THE PATELLA. SYNOVECTOMY WAS PREFORMED IN THE SUPERIOR MEDIAL COMPARTMENT. THE WOUNDS WERE APPROXIMATED WITH 4.0 NYLON. STERILE DRESSING WAS APPLIED. PATIENT WAS EXTUBATED. Estimated Blood Loss -5.0 Complications No immediate complications Condition Stable Disposition PACU
== END 2023-12-01 16:00 | disposition home or self-care (01) ==
PROVIDERS: PCP Internal Medicine; Visit Provider Orthopaedic Surgery
PROC: (CPT 29870; principal; 2023-12-01 12:15)
DX: S83.232A Complex tear of medial meniscus, current injury, left knee, initial encounter (principal); S83.282A Other tear of lateral meniscus, current injury, left knee, initial encounter; M22.42 Chondromalacia patellae, left knee; M65.862 Other synovitis and tenosynovitis, left lower leg; X50.0XXA Overexertion from strenuous movement or load, initial encounter; I10 Essential (primary) hypertension; E66.01 Morbid (severe) obesity due to excess calories; Z68.41 Body mass index [BMI] 40.0-44.9, adult; Z79.01 Long term (current) use of anticoagulants; Z87.891 Personal history of nicotine dependence
CPT/HCPCS: 29880; A9270; J1100; J1170; J2250; J2405; J2704; J7120

== ENCOUNTER 2024-05-24 14:15 | Outpatient (CLI) | payer BC, SELFPAY ==
--- NOTE | ~2024-05-24 | US_ITS ---
US thyroid INDICATION: Right-sided tenderness TECHNIQUE: Real-time sonographic images of the thyroid gland were obtained. COMPARISON: No prior studies for comparison. FINDINGS: The right thyroid lobe measures 3.9 x 1.3 x 1.4 cm. The left thyroid lobe measures 3.4 x 1 x 1.4 cm. There is a 5 mm cyst of the right thyroid lobe, likely of no clinical significance. There is normal echotexture and echogenicity throughout the thyroid gland. No suspicious nodules identified . Normal vascular flow is present. IMPRESSION: 1. Unremarkable thyroid ultrasound. Reviewed, dictated and finalized at location B.
== END 2024-05-24 14:16 | disposition home or self-care (01) ==
PROVIDERS: PCP Internal Medicine; Visit Provider Internal Medicine
DX: E07.9 Disorder of thyroid, unspecified (principal)
CPT/HCPCS: 76536

== ENCOUNTER 2024-10-31 07:23 | Outpatient (CLI) | payer BC, SELFPAY ==
--- NOTE | ~2024-10-31 | US_ITS ---
Limited Abdominal Sonogram: Real-time sonographic imaging of the right upper quadrant was performed. Clinical History: Abdominal pain Findings: The liver appears mildly heterogeneous with no evidence of solid mass lesion or bile duct dilatation. Probable small hepatic cyst present. Main portal vein demonstrates normal direction of fl ow. The gallbladder is well distended, and demonstrates apparent stones at the gallbladder neck. Ther e is borderline gallbladder wall thickening. The common bile duct measures 3 mm. The visualized panc reas, aorta, and IVC are unremarkable. Impression: Cholelithiasis with distended gallbladder with borderline gallbladder wall thickening. Positive sonog raphic Cabrera's sign. Correlate for early/mild acute cholecystitis. Consider HIDA scan as indicated. Suspected fatty infiltration of liver or possibly other chronic liver disease. Reviewed, dictated and finalized at [facility]. O INTELLIGENCE OPERATOR Impression: Cholelithiasis with distended gallbladder with borderline gallbladder wall isidro lafleur. Positive sonographic Cabrera's sign. Correlate for early/mild acute chol ecystitis. Consider HIDA scan as indicated. Suspected fatty infiltration of liver or possibly other chronic liver disease.
== END 2024-10-31 07:24 | disposition home or self-care (01) ==
LOC: CHSIMG 07:26
PROVIDERS: PCP Internal Medicine; Visit Provider Internal Medicine
DX: R10.9 Unspecified abdominal pain (principal); K80.20 Calculus of gallbladder without cholecystitis without obstruction
CPT/HCPCS: 76705

== ENCOUNTER 2024-12-01 08:06 | Outpatient (CLI) | payer BC, SELFPAY ==
--- NOTE | 2024-12-01 08:00 | ECG_ITS ---
Test Date: 2024-12-01 08:40:53 Measurements Intervals Copen Rate: 52 P: 45 SC: 115 QRS: 25 QRSD: 108 T: 37 QT: 415 QTc: 388 Interpretive Statements SINUS BRADYCARDIA WITH SHORT SC INTERVAL MODERATE INTRAVENTRICULAR CONDUCTION DELAY [105+ ms QRS DURATION, 80+ ms Q/S IN V1/V2, NO Q AND 60+ ms R IN I/aVL/V5/V6] No previous ECG available for comparison Electronically Signed On 12-01-2024 14:37:19 CANDY PACKER by Lesa Haynes M.D.
--- OUTSIDE RECORDS SUMMARY | 2024-12-01 08:20 | XMS_ITS | Patient Health Summary ---
Author Organization [facility] Address [address] [place] [address] Care Team Providers Care Materials Management Manager Name Role Phone Nahid Kim MD Primary Care Provider [phone] Note from [facility],non-owned Affiliates and Associated Physician Practices is amultiple site organization consisting of ambulatory clinics and hospital sitesin [place], [place], [place] and [place]. This disclosure is being madepursuant to the Care Everywhere program and may not contain all information available regarding this patient. Last updated 18.[facility] Allergies * Cephalexin Medications * Be aware that medications may not be up to date on this document. Alwaysverify current medications with the patient. * escitalopram (LEXAPRO) 20 MG tablet Take 20 mg by mouth once daily * benzonatate (TESSALON) 100 MG capsule(Started 11/15/2017) Take 1 capsule by mouth 3 times daily as needed for Cough * albuterol HFA (PROVENTIL;VENTOLIN;PROAIR) 108 (90 BASE) MCG/ACT inhaler (Started 11/15/2017) Inhale 2 puffs by mouth every 6 hours as needed for Cough Social History Tobacco Use Types Packs/Day Years Used Date Smoking Tobacco: Former Cigarettes Q uit: 1984 Smokeless Tobacco: Never Sex and Gender Information Value Date Recorded Sex Assigned at Not on file Gender Identity Not on file Sexual Orientation Not on file Last Filed Vital Signs Vital Sign Reading Time Taken Comments Blood Pressure 130/80 11/15/2017 12:25 PM COMMERCIAL LITIGATION ATTORNEY Pulse 60 11/15/2017 12:25 PM COMMERCIAL LITIGATION ATTORNEY Temperature 36.8 ??C (98.2 ??F) 11/15/2017 12:[address] Respiratory Rate 16 11/15/2017 12:25 PM COMMERCIAL LITIGATION ATTORNEY Oxygen Saturation 98% 11/15/2017 12:25 PM COMMERCIAL LITIGATION ATTORNEY Inhaled Oxygen Concentration - - Weight 90.7 kg (200 lb) 11/15/2017 12:25 PM COMMERCIAL LITIGATION ATTORNEY Height 163.8 cm (5' 4.5 ) 11/15/2017 12:25 PM CS T Body Mass Index 33.8 11/15/2017 12:25 PM COMMERCIAL LITIGATION ATTORNEY Procedures * INFLUENZA A+B - POINT OF CARE (AMB)(Performed 11/15/2017) Performed for Acute bronchitis, unspecified organism Results * INFLUENZA A+B - POINT OF CARE (AMB) (11/15/2017) Influenza A Antigen Rapid Negative Negative Influenza B Antigen Rapid Negative Negative Influenza Internal Control yes NEGATIVE - POSITIVE Influenza Lot Number [id number] Influenza Expiration Date 07/16/19 Other NASOPHARYNGEAL SWAB / Unknown 11/15/2017 Salima Verdugo AUTHORIZATION MANAGER-OPHTHALMIC SURGICAL ASSISTANT LAB - POINT OF CA RE ORDERABLES Care Teams Materials Management Manager Relationship Specialty Start Date End Date Nahid Kim MD PCP - General Internal Medicine 11/15/17
--- OUTSIDE RECORDS SUMMARY | 2024-12-01 08:20 | XMS_ITS | Clinical Summary ---
Author Organization [facility] al Address [address] [place] [address] Care Team Providers Care Evp Managing Director Name Role Phone Dexter Stanford MD Primary Care Provider Allergies Active Allergy Reactions Criticality Noted Date Comments Cephalexin Hives,Rash Medium Latex Rash Medium 12/02/2023 If bandaid is on too long Medications escitalopram (LEXAPRO) 20 mg tablet Take 1 tablet (20 mg total) by mouth every morning Active VITAMIN B COMPLEX ORAL Take 1 capsule by mouth heel shaper before breakfast Active ascorbic acid (vitamin C) 1,000 mg tablet Take 1 tablet (1,000 mg total) by mouth heel shaper before breakfast Active dilTIAZem CD 120 mg 24 hr capsule TAKE 1 CAPSULE BY MOUTH EVERY DAY 90 capsule 3 4 Active azelastine (ASTELIN) 137 mcg (0.1 %) nasal spray Administer 1 spray into affected nostril(s) heel shaper before breakfast [address] (PROTONIX) 40 mg EC tablet Take 1 tablet (40 mg total) by mouth heel shaper before breakfast 4 Active calcium-vits E8-A-D5-mineral s 166.75 mg- 166.75 unit capsule Take 1 capsule by mouth heel shaper before breakfast 4 Active vit C/vit E/lutein/min/om ega-3 (OCUVITE ORAL) Take 1 tablet by mouth heel shaper before breakfast Active cyanocobalamin, vitamin B-12, (VITAMIN B-12 ORAL) Take 1 tablet by mouth heel shaper before breakfast Active MULTIVITAMIN ORAL Take 1 tablet/capsule by mouth heel shaper before breakfast Active BIOTIN ORAL Take 1 capsule by mouth heel shaper before breakfast Active omega-3s/dha/ep a/fish oil (OMEGA 3 ORAL) Take 1 capsule by mouth heel shaper before breakfast Active Xarelto 20 mg tablet TAKE 1 TABLET BY MOUTH EVERY DAY 90 tablet 2 4 Active losartan-hydroC HLOROthiazide (HYZAAR) 100-12.5 mg per tablet Take 1 tablet by mouth nightly 4 Active oxyCODONE (ROXICODONE) 5 mg immediate release tabletIndicatio ns:Pain Take 1 tablet (5 mg total) by mouth every 8 (eight) hours as needed for pain 20 tablet 4 Active cyclobenzaprine (FLEXERIL) 5 mg tablet Take 1 tablet (5 mg total) by mouth 3 (three) times a day 50 tablet 4 Active acetaminophen 500 mg capsule Take 2 capsules (1,000 mg total) by mouth every 6 (six) hours 4 Active albuterol HFA (PROVENTIL HFA,VENTOLIN HFA,PROAIR HFA) 90 mcg/actuation inhaler INHALE 2 PUFFS BY MOUTH EVERY 4 TO 6 HOURS NEEDED FOR SHORTNESS OF BREATH OR FOR WHEEZE 4 Active losartan (COZAAR) 100 mg tablet Take 1 tablet (100 mg total) by mouth daily 4 Active Active Problems Problem Noted Date Diagnosed Date Malignant neoplasm of upper- outer quadrant of right female breast 08/31/2024 Malignant neoplasm of upper- outer quadrant of right breast in female, estrogen receptor positive 05/20/2024 Palpitations 08/22/2020 Nasal congestion 12/14/2019 Assessment & Plan (12/14/2019 3:37 PM DIRECTOR INDEX): She will try to keep her nasal passages moist by using simply Saline liberally throughout the day and the evening to help prevent another episode of epistaxis. She will adjust her humidity setting and climate line temperature as needed. Obstructive sleep apnea 10/12/2019 Assessment & Plan (12/14/2019 3:32 PM DIRECTOR INDEX): She will wear her APAP set from 4-20 cm water pressure nightly. She will try to increase her sleep time to 7-8 hours nightly. Reviewed with the patient that untreated sleep apnea can increased risk of irregular heart rhythm, congestive heart failure, heart attack and stroke. Assessment & Plan (10/12/2019 4:31 PM DIRECTOR INDEX): Reviewed and discussed with the patient that she has moderate to severe obstructive sleep apnea. Reviewed with patient that untreated sleep apnea increases her risk of heart attack, stroke, irregular heart rhythm, congestive heart failure, diabetes, weight gain and memory loss. She will be placed on a Pap set from 4-20 cm water pressure with a goal of therapy to use her machine nightly for 7-8 hours to get maximal health benefits. Snoring 08/18/2019 Assessment & Plan (08/18/2019 12:09 PM CDT): Reviewed and discussed with the patient the risk of untreated sleep apnea to include increased risk of heart attack, stroke, hypertension, irregular heart rhythm, congestive heart failure, diabetes, weight gain and dementia. She will have a home sleep study to evaluate for sleep apnea. Fatigue 08/18/2019 Assessment & Plan (08/18/2019 12:09 PM CDT): Reviewed and discussed with the patient the risk of untreated sleep apnea to include increased risk of heart attack, stroke, hypertension, irregular heart rhythm, congestive heart failure, diabetes, weight gain and dementia. She will have a home sleep study to evaluate for sleep apnea. Paroxysmal atrial fibrillation (CMS/HCC) 019 Assessment & Plan (10/12/2019 4:31 PM DIRECTOR INDEX): Reviewed and discussed with the patient that she has moderate to severe obstructive sleep apnea. Reviewed with patient that untreated sleep apnea increases her risk of heart attack, stroke, irregular heart rhythm, congestive heart failure, diabetes, weight gain and memory loss. She will be placed on a Pap set from 4-20 cm water pressure with a goal of therapy to use her machine nightly for 7-8 hours to get maximal health benefits. Assessment & Plan (08/18/2019 12:09 PM CDT): Reviewed and discussed with the patient the risk of untreated sleep apnea to include increased risk of heart attack, stroke, hypertension, irregular heart rhythm, congestive heart failure, diabetes, weight gain and dementia. She will have a home sleep study to evaluate for sleep apnea. Class 2 severe obesity due t o excess calories with serious comorbidity and body mass index (BMI) of 37.0 to 37.9 in adult 08/18/2019 Assessment & Plan (12/14/2019 3:33 PM DIRECTOR INDEX): She will practice good health habits trying to eat more vegetables, fruit and lean protein her diet to help promote weight loss. Assessment & Plan (10/12/2019 4:31 PM DIRECTOR INDEX): Reviewed and discussed with the patient that she has moderate to severe obstructive sleep apnea. Reviewed with patient that untreated sleep apnea increases her risk of heart attack, stroke, irregular heart rhythm, congestive heart failure, diabetes, weight gain and memory loss. She will be placed on a Pap set from 4-20 cm water pressure with a goal of therapy to use her machine nightly for 7-8 hours to get maximal health benefits. Assessment & Plan (08/18/2019 12:09 PM CDT): Reviewed and discussed with the patient the risk of untreated sleep apnea to include increased risk of heart attack, stroke, hypertension, irregular heart rhythm, congestive heart failure, diabetes, weight gain and dementia. She will have a home sleep study to evaluate for sleep apnea. 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 She will have a home sleep study to evaluate for sleep apnea. Vertigo Encounters Date Type Department Care Team Description 10/03/2024 2:15 PM DIRECTOR INDEX Office Visit [facility] [address] [place] [address] [place] [address] Finn Oro MD Acquired absence of bilateral breasts and nipples (Primary Dx) 09/27/2024 10:00 AM DIRECTOR INDEX Office Visit [facility] [address] [place] [address] [place] [address] Ductal carcinoma in situ (DCIS) of right breast (Primary Dx) 09/21/2024 10:00 AM DIRECTOR INDEX Office Visit [facility] [address] [place] [address] [place] [address] Ductal carcinoma in situ (DCIS) of right breast (Primary Dx) 09/18/2024 4:00 PM DIRECTOR INDEX Office Visit [facility] [address] [facility] Floor [address] [place] [address] Aft, Betsy Marc MD PhD Malignant neoplasm of upper-outer quadrant of right breast in female, estrogen receptor positive (HCC) (Primary Dx) 09/18/[address] [place] [address] Radha Martinez RN 09/13/2024 10:00 AM DIRECTOR INDEX Office Visit [facility] [address] [place] [address] [place] [address] Ductal carcinoma in situ (DCIS) of right breast (Primary Dx) 09/08/2024 10:00 AM DIRECTOR INDEX Office Visit [facility] [address] [place] [address] [place] [address] Deepthi Giang PA Ductal carcinoma in situ (DCIS) of right breast (Primary Dx) 08/31/2024 1:35 PM CDT Anesthesia Event [facility] [address] [place] [address] [place] [address] Colin Lopez MD DDS Carolina Palafox NP 08/31/2024 12:05 PM CDT - 08/31/2024 4:40 PM CDT Surgery [facility] [address] [place] [address] AftBetsy MD PhD (COMBO: AFT/SACKS) MASTECTOMY BILATERAL 08/31/2024 9:53 AM CDT - 09/01/2024 1:30 PM CDT Hospital Encounter [address] [address] Betsy Caballero MD PhD Encounter for preoperative assessment (Primary Dx); Malignant neoplasm of upper-outer quadrant of right breast in female, estrogen receptor positive (HCC) Discharge Disposition: Discharge to home or self care 08/31/2024 Orders Only [facility] [address] [facility] Floor [address] [place] [address] Betsy Caballero MD PhD from Last 3 Months Immunizations Name Administration Dates Next Due Influenza, Quadrivalent, Pita l Culture-based MDCK, Preservative Free, Antibiotic Free, Intramuscular 08/09/2019 Influenza, Quadrivalent, Spl it, Preservative Free, Intramuscular 07/11/2018 Surgical History Surgery Date Site/Laterality Comments SECTION 1983 & 1987 TOTAL ABDOMINAL HYSTERECTOMY W/ BILATERAL SALPINGOOPHORECTOMY 11/01/2013 - 10/31/2014 Total Abdominal Hysterectomy With Bilateral Salpingo-Oophorectomy - (Added by TW Conv) MELANOMA RESECTION 11/01/2013 - 10/31/2014 Left Left hip/thigh BREAST BIOPSY 06/13/2018 Right Benign COLONOSCOPY 11/01/2018 - 10/31/2019 TYMPANOPLASTY 11/01/1975 - 10/31/1976 Right BREAST BIOPSY 04/25/2024 Right +DCIS TUBAL LIGATION 11/01/1994 - 10/31/1995 SLEEVE GASTROPLASTY 12/02/2023 - 12/30/2023 LIPOMA RESECTION 08/01/2014 - 08/31/2014 Right Lipoma Right thigh LEG SKIN LESION BIOPSY / EXCISION 01/30/2019 - 02/28/2019 Left Left calf--SEBORRHEIC KERATOSIS SKIN BIOPSY 04/01/2020 - 04/30/2020 Right Right upper lip--FIBROUS PAPULE ESOPHAGOSCOPY / EGD Multiple-- Last 10/2023 KNEE ARTHROSCOPY W/ MENISCAL REPAIR 12/01/2023 Left Medical History Medical History Date Comments History of melanoma 2013 Melanoma Lef t Thigh/hip s/p excision ~2013 Pain in joint Arthralgia of mu ltiple sites - (Added by TW Conv) Asymptomatic menopausal state Me nopause - (Added by TW Conv) History of colonic polyps Histor y of colonic polyps - (Added by TW Conv) Hypertension Dxd ~2017 Prediabetes Atrial fibrillation (CMS/HCC) (HCC) Treated with Xarelto Vertigo Colon polyp Diverticulosis Arthritis Depression Migraines Frequent headaches Obesity Breast cancer (HCC) Right Breast DCIS dxd 04/25/2024 Sleep apnea Compliant with C PAP machine Family History Medical History Relation Name Comments Asthma Brother Linwood Su Allergy (severe) Daughter Jamee Barreto Asthma Daughter Jamee Barreto Heart attack Father Jim Hoang Family histor y of myocardial infarction - (Added by TW Conv) Colon cancer Maternal Grandmother Colon c ancer - (Added by TW Conv) Arthritis Mother aRdha Rich COPD Mother Radha Rich Family history of chronic obstructive pulmonary disease - (Added by TW Conv) Cancer Mother Radha Rich Diabetes Mother Radha Rich Family history of diabetes mellitus - (Added by TW Conv) Heart disease Mother Radha Rich Family history of cardiac disorder - (Added by TW Conv) Vision loss Mother Radha Rich Anesthesia problems Neg Hx Relation Name Status Comments Brother Linwood Su Daughter Jamee Barreto Father Jim Hoang Maternal Grandmother Mother Radha Rich Alive Social History Tobacco Use Types Packs/Day Years Used Date Smoking Tobacco: Former Cigarettes Q uit: 1983 Smokeless Tobacco: Never Tobacco Cessation:Counseling Given: Not Answered Alcohol Use Standard Drinks/Week Comments Yes 1 (1 standard drink = 0.6 oz pur e alcohol) Every 3 months AUDIT-C Answer Date Recorded Q1: How often do you have a drink containing alcohol? Never 08/31/2024 Q2: How many drinks containi ng alcohol do you have on a typical day when you are drinking? Patient does not drink Q3: How often do you have si x or more drinks on one occasion? Never 08/31/2024 Personal Safety Answer Date Recorded Have you ever been in or are you currently in a harmful physical or emotional relationship or is someone making you feel afraid or unsafe? Denies 08/31/2024 Comments No Sex and Gender Information Value Date Recorded Sex Assigned at Not on file Legal Sex Female 11:52 PM DIRECTOR INDEX Gender Identity Female 08/14/2020 7:08 AM CDT Sexual Orientation Straight 08/01/2019 1: 38 PM CDT Obstetrics History Last Filed Vital Signs Vital Sign Reading Time Taken Comments Blood Pressure 114/56 09/01/2024 8:20 AM CDT Pulse 53 09/01/2024 8:20 AM CDT Temperature 36.8 ??C (98.2 ??F) 09/01/2024 8:20 AM CD T Respiratory Rate 16 09/01/2024 8:20 AM CDT Oxygen Saturation 99% 09/01/2024 8:20 AM CDT Inhaled Oxygen Concentration - - Weight 86.2 kg (190 lb) 08/31/2024 11:04 AM CDT Height 162.6 cm (5' 4 ) 08/31/2024 11:04 AM CDT Body Mass Index 32.61 08/31/2024 11:04 AM CDT Plan of Treatment Health Maintenance Due Date Last Done Comments Depression Screening 1960 Hepatitis C Screening 1960 DTaP/Tdap/Td Vaccine (1 - Tdap) 1972 Hepatitis B Screening 1979 Regular Well Visit/Exam 18-64 1979 Zoster Vaccine (1 of 2) 2011 Influenza Vaccine (#1) 2024 9, 07/11/2018, 08/18/2015 Breast Cancer Screening-Mammogram 04/14/2025 04/14/2024, 04/06/2023, 04/06/2023, Additional history exists Colon Cancer Screening-Colonoscopy 05/20/2030 05/20/2020, 05/25/2016, 12/17/2014 Colon Cancer Screening-CT Colonography Discontinued 05/20/2020, 05/25/2016, 12/17/2014 Colon Cancer Screening-DNA Stool Discontinued 05/20/2020, 05/25/2016, 12/17/2014 Colon Cancer Screening-FIT Discontinued 05/20, 05/25/2016, 12/17/2014 Colon Cancer Screening-Sigmoidoscopy Discontinued 05/20/2020, 05/25/2016, 12/17/2014 Pneumococcal vaccine <65 Aged Out No longer eligible based on patient's age to complete this topic Medical Devices Implanted Type Area Shellfish Shucker Device Identifier Shelf Expiration Date Model / Serial / Lot [employer] Hull Inspector Tissue 15x13.8cm Breast 600-720cc Smooth Srfc Allox2-Fh15se - [id number] - [id number] Implanted:Qty: 1 on 08/31/2024 by Aft, Betsy Marc MD PhD at [facility] Breast Left: Breast [employer] ALLOX2-F H15SE / [id number] / [employer] Magtrace Liquid Marker 10 Vial Carton [id number] - [id number] Implanted:Qty: 1 on 08/31/2024 by Federico, Betsy Marc MD PhD at [facility] Other - see comments Right: Breast [employer] 08/31/2026 [id number] / / [id number] Breast Biopsy Marker Breast [employer] Eviva 13cm Identifier Biopsy Site [id number] - [id number] Implanted:Qty: 1 on 04/25/2024 at [facility] [employer] [id number] 12/26/2025 [facility] EDDIE-13 / / [id number] [employer] Hull Inspector Tissue 15x13.8cm Breast 600-720cc Smooth Srfc Allox2-Fh15se - [id number] - [id number] Implanted:Qty: 1 on 08/31/2024 by Federico, Betsy Marc MD PhD at [facility] Right: Breast [employer] ALLOX2-F H15SE / [id number] / Procedures Procedure Name Priority Date/Time Associated Diagnosis Comments SURGICAL PATHOLOGY Routine 08/31/2024 2: 37 PM CDT ANESTHESIA INTUBATION Routine 08/31/2024 2:17 PM CDT TRANSFER ADJACENT TISSUE - UPPER EXTREMITY 08/31/2024 1:35 PM CDT Malignant neoplasm of upper-outer quadrant of right breast in female, estrogen receptor positive (HCC) Case Notes [email or web address]: Sent email to Mayra about [employer] conflict. SR Special Needs [employer] needed day of surgery INSERTION TISSUE TRANSPORTATION MAINTENANCE OPERATOR - BREAST 08/31/2024 1:35 PM CDT Malignant neoplasm of upper-outer quadrant of right breast in female, estrogen receptor positive (HCC) Case Notes [email or web address]: Sent email to Mayra about [employer] conflict. SR Special Needs [employer] needed day of surgery BIOPSY SENTINEL LYMPH NODE 08/31/2024 1:35 PM CDT Malignant neoplasm of upper-outer quadrant of right breast in female, estrogen receptor positive (HCC) Case Notes [email or web address]/[email or web address]: Sent email to Mayra about [employer] conflict. SR Special Needs [employer] needed day of surgery MASTECTOMY BILATERAL 08/31/2024 1:35 PM CDT Malignant neoplasm of upper-outer quadrant of right breast in female, estrogen receptor positive (HCC) Case Notes [email or web address]: Sent email to Mayra about [employer] conflict. SR Special Needs [employer] needed day of surgery GA AN PROCEDURE PLACEHOLDER Routine 08/31/2024 12:44 PM CDT GA AN PROCEDURE PLACEHOLDER Routine 08/31/2024 12:43 PM CDT ANESTHESIA PERIPHERAL BLOCK Routine 08/31/2024 12:43 PM CDT GA AN PROCEDURE PLACEHOLDER Routine 08/31/2024 12:42 PM CDT SCREENING MAMMOGRAM BILATERAL W NICOLA Schedule Routine, Read Routine (OP Routine) 04/14/2024 12:46 PM CDT Screening mammogram, encounter for COLONOSCOPY 05/20/2020 1:08 PM CDT from Last 3 Months or Most Recently Relevant to Health Maintenance Results * Surgical pathology (08/31/2024 2:37 PM CDT) Breast, simple mastectomy 08/31/2024 2:37 PM CDT 08/31/2024 2:58 PM CDT Narrative 09/05/2024 12:28 PM DIRECTOR INDEX EPIC results best viewed via link to PDF [facility] [place] [address] Note to Patients: This report may contain a detailed description of human tissue sent by a health care provider to the laboratory for pathologic evaluation. The content of this report is essential for diagnosis and may provide important critical findings. This information may be unfamiliar to patients to review without a medical professional present. It is advised that the patient review this report in the presence of a health care provider who can answer questions and explain the details. SURGICAL PATHOLOGY REPORT FINAL Patient Name: ?? HUMPHREY BLANCO Gender: ??F : ??1960 (Age: 64) Address: ??[address] [place] [address] ??[id number] Hospital #: ??[id number] Taken:08/31/2024 Received:08/31/2024 Reported: 09/05/2024 Patient Type: [facility] OP In Bed ?? Service: Surgery Location: [place] [address] Physician(s): ??Elvis Metz M.D. Manish Mathur, M.D. Diagnosis: A. ??Breast, right, simple mastectomy ? - Ductal carcinoma in situ (DCIS) ?- Not directly measurable, estimated extent = at least 20 mm ?- Nuclear grade = 3/3 by SBR criteria ?- Solid, clinging and cribriform pattern with comedonecrosis and extension into lobules ? - DCIS involves nipple ducts ?- Resection margins negative; nearest = less than 1 mm to superior margin ? - Biopsy site change x2 with clips identified ? - Second biopsy site with fibrocystic changes ? - See synoptic ?? B. ??Lymph nodes, right axillary sentinel, excision ? - No evidence of malignancy in five lymph nodes (0/5) ? C. ??Breast, left, simple mastectomy ? - Columnar cell change ? - Fibrocystic changes (cyst formation and stromal fibrosis) ? - Unremarkable skin and nipple ? - No atypical or malignant findings [facility]/09/05/2024 09:27 By this signature, I attest that the above diagnosis is based upon my personal examination of the slides(and/or other material indicated in the diagnosis). Irina Toussaint MD PhD Report Electronically Reviewed and Signed Out By ??Irina Toussaint MD PhD 09/05/2024 12:28:43 Microscopic Description and Comment: The attending pathologist personally reviewed one or more Faxitron radiograph(s) taken for the purpose of radiographic/pathologic correlation, including localizing clip(s) and/or calcification(s). The radiographic findings were correlated with the histologic findings. The areas of interest were embedded for histologic examination. The imaging findings support the above diagnosis. Primo Kline M.D. History: The patient is a 64-year-old woman with a malignant neoplasm of the upper outer quadrant of the right breast. ??Operative procedure : ??Bilateral mastectomy, biopsy sentinel lymph node with Mag trace, insertion tissue agile tester bilateral breast, adjacent tissue transfer bilateral breasts Specimen(s) Received: A: Right breast, stitch in axillary tail B: Right axillary sentinel lymph nodes C: Left breast, stitch in axillary tail Gross Description: Received in three formalin jars labeled with the patient's identifiers. A. ??Labeled right breast, stitch axillary tail -Collected: 1437 on 08/31/2024 -Received: 1458 on 08/31/2024 -Placed in formalin: 1508 on 08/31/2024 -Formalin fixation time: 29 hours and 52 minutes -Specimen orientation: Stitch axillary tail -Specimen weight: 1033 g -Specimen Dimensions: ? Medial to Lateral: 22.5 cm ? Superior to Inferior: 18.0 cm ? Anterior to Posterior: 5.0 cm - Skin: ? Dimensions: ??5.5 x 4.1 cm ? Nipple/areola diameter: ??Nipple 1.2 cm in diameter, areola 3.5 cm in diameter -Margins inked: ? Anterior/Superior: Blue ? Anterior/Inferior: ??Green ? Posterior: ??Black -Sectioned: ??Lateral to medial -Number of slices: 19 -Nipple/areolar complex centered in slice: 12 -Gross findings: Fibrofatty tissue and a subareolar area of purple congestion grossly consistent with a previous biopsy site. -Putative biopsy site: ? Size: ??1.5 x 1.5 x 1.0 cm ? Location: ??In the approximate 12 o'clock position 2.5 cm from the nipple in slices 11 and 12 ? Closest margin: ??1.5 cm anterior -Specimen radiographed: ??Yes -Radiograph findings: A Cork clip in the previously described putative biopsy site and a ribbon clip in the approximate 6:30 position 4 cm from the nipple (slice 9). -Diagram: ??Yes -Summary of sections: ? A1-A4 Entire putative cork clip biopsy site and the anterior margin, slices 11 and 12 ? A5 Posterior margin closest to the biopsy site, slice 11 ? A6 Upper outer quadrant lateral to the biopsy site, slice 10 ? A7 Upper inner quadrant medial to the biopsy site, slice 13 ? A8 Nipple and parenchyma inferior to the biopsy site, slice 11 ? A9 Parenchyma superior to the biopsy site, slice 11 ? A10 Lower outer quadrant tissue surrounding the ribbon clip and the inferior anterior margin, slice 9 ? A11 Random lower inner quadrant, slice 15 ? Jar: 3 B. ??Labeled right axillary sentinel lymph nodes are three fragments of fibrofatty tissue (5.2 x 4.5 x 2.0 cm). ??Dissection and palpation reveals five putative soft purple mcmanus lymph nodes (0.9-1.9 cm in greatest dimension). ??The lymph nodes are submitted entirely as follows: B1 Largest lymph node, bisected B2 Two lymph nodes, each bisected, one inked black B3 Two remaining lymph nodes Jar 1. C. ??Labeled left breast, stitch axillary tail -Collected: 1513 on 08/31/2024 -Received: 1533 on 08/31/2024 -Placed in formalin: 1539 on 08/31/2024 -Formalin fixation time: 29 hours and 21 minutes -Specimen orientation: Stitch axillary tail -Specimen weight: 1181 g -Specimen Dimensions: ? Medial to Lateral: 23.5 cm ? Superior to Inferior: ??19.0 cm ? Anterior to Posterior: ??5.0 cm - Skin: ? Dimensions: ??6.7 x 3.7 cm ? Nipple/areola diameter: ??Nipple 1.7 cm in diameter, areola 3.7 cm in diameter -Margins inked: ? Anterior/Superior: Blue ? Anterior/Inferior: ??Green ? Posterior: ??Black -Sectioned: ??Medial to lateral -Number of slices: 16 -Nipple/areolar complex centered in slice: 7 -Gross findings: Fibrofatty tissue without focal lesions. : -Specimen radiographed: ??Yes -Radiograph findings: No masses, clips, or areas of calcification -Diagram: ??No -Summary of sections: ? C1-C2 Portable Machine Cutter upper outer quadrant, slices 9 and 12 ? C3-C4 Portable Machine Cutter lower outer quadrant, slices 10 and 12 ? C5-C6 Representativeupper inner quadrant, slices 2 and 6 ? C7-C8 Portable Machine Cutter lower inner quadrant, slices 3 and 5 ? C9 Nipple ? Jar: 3 ?? bao2/09/01/2024 09:53 PA(s): ERIKA Damon (ASCP)CM ? CANCER CASE SUMMARY FOR DUCTAL CARCINOMA IN SITU (DCIS) OF THE BREAST ? Procedure: ?Total mastectomy (including nipple-sparing and skin- sparing mastectomy) ? Specimen laterality: ?Right ? Tumor site: ?Central ? Size (extent) of DCIS: ?Greatest dimension (using gross & microscopic evaluation): at least 20 mm ? Histologic type: ?Ductal carcinoma in situ ? Architectural patterns: ?Cribriform ?Solid ? Nuclear grade: ?Grade 3 (high) ? Necrosis: ?Present, central (expansive ? ? comedo? ? necrosis) ? Margins: ?All margins negative for DCIS ?Closest margin: superior ?Less than 1 mm ? Regional lymph nodes: ?Regional lymph nodes present ?All regional lymph nodes negative for tumor ? Pathologic stage classification (pTNM, AJCC 8th Edition): ? 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 Regional lymph nodes (pN): ?Modifier: (sn): Only sentinel node(s) evaluated. ? pN Category: ?pN0: No regional lymph node metastasis identified ?Breast Biomarker Testing performed on Previous Case: [id number] ? Estrogen Receptor (ER): ?Positive ??Papito score 8/8 ? The pathologic stage assigned here should be regarded as provisional, and may change after integration of clinical data ? not provided with this report. ? 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 By this signature, I attest that the above diagnosis is based upon my personal examination of the slides(and/or other material). Addenda/Procedures The performance characteristics of some immunohistochemical stains, fluorescence in-situ hybridization tests and immunophenotyping by flow cytometry cited in this report (if any) were determined by the Surgical Pathology and Flow Cytometry Departments at [facility] as part of an ongoing vice president quality assurance program and in compliance with federally mandated regulations drawn from the Clinical Laboratory Improvement Act of 1988 (CLIA '88). ??Some of these tests rely on the use of analyte specific reagents and are subject to specific labeling requirements by the US Food and Drug Administration. ??Such diagnostic tests may only be performed in a facility that is certified by the Department of Health and Human Services as a high complexity laboratory under CLIA '88. ??The FDA has determined that such clearance or approval is not necessary. ??This test is used for clinical purposes. ??It should not be regarded as investigational or for research. ??Nevertheless, federal rules concerning the medical use of analyte specific reagents require that the following disclaimer be attached to the report: This test was developed and its performance characteristics determined by the Surgical Pathology and Flow Cytometry Departments of [facility]. ??It has not been cleared or approved by the U. S. Food and Drug Administration. IMAGES AND SCANNED DOCUMENTS, IF INCLUDED, ONLY VIEWABLE IN PDF VERSION OF REPORT us Betsy Caballero MD PhD LAB PATHOLOGY ORDERABLES F inal Result * Airway (08/31/2024 2:17 PM CDT) Narrative Larry Lauren MD - 08/31/2024 2:17 PM CDT Larry Lauren MD ? 08/31/2024 ??2:20 PM Airway Urgency: elective Indications for airway management: anesthesia Difficult airway: no Staff: Supervising provider: Colin Lopez MD DDS Placed by: Resident: Larry Lauren MD Airway prep: Preoxygenated: yes Patient position: sniffing Mask difficulty assessment: 2 - vent by mask + OA or adjuvant Spontaneous ventilation during airway: absent Sedation level during airway: GA Final airway details: Final airway type: endotracheal airway Tube type: ETT ETT size: 7.0 mm Cuffed: yes Technique used for successful ETT placement: video laryngoscopy Devices/Methods used in placement: stylet Insertion site: oral Blade type: Venus Video blade type: Nino Blade size: 3 Cormack-Lehane (video): grade I - full view of glottis Initial cuff pressure: 25 cm H2O Cuff inflated with: air ETT to lips: 21 cm Placement verified by: auscultation and bronchoscopy Airway secured with: silk tape Number of attempts: 2 Ventilation between attempts: BVM Unsuccessful airway(s) attempted: endotracheal tube Unsuccessful approach(es) for ETT: direct laryngoscopy Planned trial extubation: yes Additional comments: Attempted with DL however mouth opening was small and difficult to get view without hitting teeth so aborted and used video us Colin Lopez MD DDS ANESTHESIA ORDERABLES Diana l Result * GA AN PROCEDURE PLACEHOLDER (08/31/2024 12:44 PM CDT) Narrative Keyon Mixon MD - 08/31/2024 12:44 PM CDT Emilee Parham MD ? 08/31/2024 12:45 PM Peripheral Block Patient location during procedure: pre-op holding Reason for block: post-op pain management per surgeon request Ultrasound image in chart or stored: yes Block type: single shot Laterality: left Block type: PECS II Staff: Supervising provider: Keyon Mixon MD Placed by: Resident: Emilee Parham MD Procedure prep: Preprocedure checklist: patient identified, procedure contraindications assessed, site marked, procedure consent, surgical consent, IV checked, risks, benefits and alternatives discussed, monitors and equipment checked and timeout performed Patient position: supine and head of bed elevated Procedure performed while patient: sedate with meaningful contact Monitoring: ECG, oximetry and blood pressure Supplemental O2: nasal cannula Prep solution: chlorhexidine/alcohol PPE: provider hat/mask, sterile gloves and sterile probe cover and gel Peripheral nerve block: Technique: ultrasound guided Needle type: insulated, short-bevel and echogenic Needle gauge: 22 G Needle length: 80 mm Injection assessment: injection made incrementally with constant monitoring, negative aspiration for heme, no paresthesias noted, normal resistance to injection and see flowsheet for medication details Assessment: Block success: full evaluation pending Events: patient tolerated procedure well with no complications us Finn Oro MD ANESTHESIA ORDERABLES Final R esult * GA AN PROCEDURE PLACEHOLDER (08/31/2024 12:43 PM CDT) Narrative Keyon Mixon MD - 08/31/2024 12:43 PM CDT Emilee Parham MD ? 08/31/2024 12:44 PM Peripheral Block Patient location during procedure: pre-op holding Reason for block: post-op pain management per surgeon request Ultrasound image in chart or stored: yes Block type: single shot Laterality: left Block type: PECS I Staff: Supervising provider: Keyon Mixon MD Placed by: Resident: Emilee Parham MD Procedure prep: Preprocedure checklist: patient identified, procedure contraindications assessed, site marked, procedure consent, surgical consent, IV checked, risks, benefits and alternatives discussed, monitors and equipment checked and timeout performed Patient position: supine and head of bed elevated Procedure performed while patient: sedate with meaningful contact Monitoring: ECG, oximetry and blood pressure Supplemental O2: nasal cannula Prep solution: chlorhexidine/alcohol PPE: provider hat/mask, sterile gloves and sterile probe cover and gel Peripheral nerve block: Technique: ultrasound guided Needle type: insulated, short-bevel and echogenic Needle gauge: 22 G Needle length: 80 mm Injection assessment: injection made incrementally with constant monitoring, negative aspiration for heme, no paresthesias noted, normal resistance to injection and see flowsheet for medication details Assessment: Block success: full evaluation pending Events: patient tolerated procedure well with no complications us Keyon Mixon MD ANESTHESIA ORDERABLES Final Resu lt * Peripheral Block (08/31/2024 12:43 PM CDT) Narrative Emilee Parham MD - 08/31/2024 12:43 PM CDT Emilee Parham MD ? 08/31/2024 12:43 PM Peripheral Block Patient location during procedure: pre-op holding Reason for block: post-op pain management per surgeon request Ultrasound image in chart or stored: yes Block type: single shot Laterality: right Block type: PECS II Staff: Supervising provider: Keyon Mixon MD Placed by: Resident: Emilee Parham MD Procedure prep: Preprocedure checklist: patient identified, procedure contraindications assessed, site marked, procedure consent, surgical consent, IV checked, risks, benefits and alternatives discussed, monitors and equipment checked and timeout performed Patient position: supine and head of bed elevated Procedure performed while patient: sedate with meaningful contact Monitoring: ECG, oximetry and blood pressure Supplemental O2: nasal cannula Prep solution: chlorhexidine/alcohol PPE: provider hat/mask, sterile gloves and sterile probe cover and gel Peripheral nerve block: Technique: ultrasound guided Needle type: insulated, short-bevel and echogenic Needle gauge: 22 G Needle length: 80 mm Injection assessment: injection made incrementally with constant monitoring, negative aspiration for heme, no paresthesias noted, normal resistance to injection and see flowsheet for medication details Assessment: Block success: full evaluation pending Events: patient tolerated procedure well with no complications Emilee Parham MD ANESTHESIA ORDERABLES Final Re sult * GA AN PROCEDURE PLACEHOLDER (08/31/2024 12:42 PM CDT) Narrative Keyon Mixon MD - 08/31/2024 12:42 PM CDT Keyon Mixon MD ? 08/31/2024 ??1:56 PM Peripheral Block Patient location during procedure: pre-op holding Reason for block: post-op pain management per surgeon request Ultrasound image in chart or stored: yes Block type: single shot Laterality: right Block type: PECS I Staff: Supervising provider: Keyon Mixon MD Placed by: Resident: Emilee Parham MD Procedure prep: Preprocedure checklist: patient identified, procedure contraindications assessed, site marked, procedure consent, surgical consent, IV checked, risks, benefits and alternatives discussed, monitors and equipment checked and timeout performed Patient position: supine and head of bed elevated Procedure performed while patient: sedate with meaningful contact Monitoring: ECG, oximetry and blood pressure Supplemental O2: nasal cannula Prep solution: chlorhexidine/alcohol PPE: provider hat/mask, sterile gloves and sterile probe cover and gel Peripheral nerve block: Technique: ultrasound guided Needle type: insulated, short-bevel and echogenic Needle gauge: 22 G Needle length: 80 mm Injection assessment: injection made incrementally with constant monitoring, negative aspiration for heme, no paresthesias noted, normal resistance to injection and see flowsheet for medication details Assessment: Block success: full evaluation pending Events: patient tolerated procedure well with no complications Emilee Parham MD ANESTHESIA ORDERABLES Final Re sult * Screening Mammogram Bilateral W Nicola (04/14/2024 12:46 PM CDT) Anatomical Region Laterality Modality Breast Bilateral Mammography Narrative 04/17/2024 4:44 PM CDT Mammogram Technique: Bilateral Digital Breast Tomosynthesis, Bilateral C-view 2D Screening mammogram. ??Views obtained: ??bilateral craniocaudal and bilateral mediolateral oblique. ??Computer Aided Detection was performed. Mammogram Findings: The present examination has been compared to prior imaging studies performed at [facility] on 03/30/2020, 03/10/2021 and 04/06/2023. There are scattered areas of fibroglandular density. There are calcifications in the anterior upper outer quadrant of the right breast. There is no suspicious abnormality in the left breast. Impression: Calcifications in the right breast require additional evaluation. A diagnostic mammogram of the right breast is recommended at this time. OVERALL FINAL ASSESSMENT: BI-RADS CATEGORY 0: ??Incomplete: ??Need additional imaging evaluation. Procedure Note Jeannette Vargas MD - 04/17/2024 Mammogram Technique: Bilateral Digital Breast Tomosynthesis, Bilateral C-view 2D Screening mammogram. Views obtained: bilateral craniocaudal and bilateral mediolateral oblique. Computer Aided Detection was performed. Mammogram Findings: The present examination has been compared to prior imaging studies performed at [facility] on 03/30/2020, 03/10/2021 and 04/06/2023. There are scattered areas of fibroglandular density. There are calcifications in the anterior upper outer quadrant of theright breast. There is no suspicious abnormality in the left breast. Impression: Calcifications in the right breast require additional evaluation. A diagnostic mammogram of the right breast is recommended at this time. OVERALL FINAL ASSESSMENT: BI-RADS CATEGORY 0: Incomplete: Need additional imaging evaluation. Self Screening Mammogram IMG MAMMO PROCEDURES Fi nal Result * COLONOSCOPY (05/20/2020 1:08 PM CDT) Anatomical Region Laterality Modality Other Narrative Procedure Note Chirag Das MD - 05/20/2020 1:08 PM CDT [facility] Patient Name: Humphrey Blanco Procedure Date: 05/20/2020 1:08 PM Date of : 1960 Admit Type: Outpatient Age: 59 Gender: Female Attending MD: Josue Siddiqui Room: [facility] 4 Note Status: Addendum Procedure: Colonoscopy Indications: High risk colon cancer surveillance: Personalhistory of colonic polyps, Last colonoscopy: May 2016 Referring MD: Nahid Kim M.D. Providers: Chirag Das M.D. Medicines: Monitored Anesthesia Care Complications: No immediate complications. Estimated Blood Loss: Estimated blood loss was minimal. Procedure: Pre-Anesthesia Assessment: - Prior to the procedure, a History and Physical was performed, and patient medications, allergies and sensitivities were reviewed. The patient's toleranceof previous anesthesia was reviewed. - The risks and benefits of the procedure and the sedation options and risks were discussed with the patient. All questions were answered and informed consent was obtained. - Patient identification and proposed procedure were verified prior to the procedure. - Immediately prior to administration ofmedications, the patient was re-assessed for adequacy to receive sedatives. The benefits, risks and alternatives of theprocedure and sedation were discussed and informed consent was obtained. All questions were answered. Please referto the signed informed consent document in the medical record. The scope was passed under direct vision.The [id number] endoscope was introduced throughthe anus and advanced to the cecum, identified by appendiceal orifice and ileocecal valve. The colonoscopy was performed without difficulty. The patient tolerated the procedure well. The quality of the bowel preparation was evaluated using the BBPS ([place] Bowel Preparation Scale) with scores of:Right Colon = 2 (minor amount of residual staining, small fragments of stool and/or opaque liquid, but mucosa seen well), Transverse Colon = 3 (entire mucosa seen well with no residual staining, small fragments of stool or opaque liquid) and Left Colon = 2 (minor amount of residual staining, small fragments ofstool and/or opaque liquid, but mucosa seen well). Thetotal BBPS score equals 7. The bowel preparation used was GoLYTELY. Bowel prep was administered using a split dose. The quality of the bowel preparation wasadequate. Findings: The perianal and digital rectal examinations were normal. Non-bleeding internal hemorrhoids were found during retroflexion. The hemorrhoids were small. Multiple small and large-mouthed diverticula were found in thesigmoid colon, transverse colon and ascending colon. A 3 mm polyp was found in the ascending colon. The polyp was sessile. The polyp was removed with a jumbo cold forceps. Resection andretrieval were complete. The exam was otherwise without abnormality. Impression: - Non-bleeding internal hemorrhoids. - Diverticulosis in the sigmoid colon, in the transverse colon and in the ascending colon. - One 3 mm polyp in the ascending colon, removedwith a jumbo cold forceps. Resected and retrieved. - The examination was otherwise normal. Recommendation: - Discharge patient to home. - Await pathology results. - Return to referring physician as previouslyscheduled. - Repeat colonoscopy in 5-10 years for surveillance based on pathology results. - A polyp or polyps were removed during your colonoscopy today. After the pathology result of the polyp(s)? ? ?is reviewed, the doctor who performed your colonoscopy will recommend follow-up colonoscopy toyou based on current guidelines by gastroenterology societies: - If only small hyperplastic polyps from the rectumor sigmoid were removed, repeat the colonoscopy in 10 years. - If 1 or 2? ? ?polyps less than 1 cm in size areadenomas, repeat the colonoscopy in 5 years. - If 3 or more polyps are adenomas, repeat the colonoscopy in 3 years. - If there are 10 or more adenomas, repeat the colonoscopy in 1 year. - If any polyp is 10 mm or greater in size, hasvillous histology or high grade dysplasia, repeat? ? ?the colonoscopy in 3 years. - If a polyp greater than 2 cm was removed with a piecemeal technique, repeat the colonoscopy in 6months to be certain that there is no residual polyp. - Sessile serrated polyps are treated like adenomasfor surveillance purposes. Electronically signed by Chirag Das MD Chirag Das M.D. 05/20/2020 1:47:15 PM . Number of Addenda: 1 Note Initiated On: 05/20/2020 1:08 PM Recognized by the [place] [employer] for promoting quality in endoscopy Addendum Number: 1 Addendum Date: 05/20/2020 1:50:08 PM - Restart Xarelto tomorrow. Electronically signed by Chirag Das MD Chirag Das M.D. 05/20/2020 1:50:32 PM . Chirag Das MD ENDOSCOPY PROCEDUR ES Edited Result - Final from Last 3 Months or Most Recently Relevant to Health Maintenance Insurance [email or web address] O[employer] Advance Directives For more information, please contact: [phone] * Full Code (Latest Code Status on File) Date Activated Date Inactivated Comments 08/31/2024 6:32 PM 09/01/2024 6:02 PM * Full Code Date Activated Date Inactivated Comments 05/20/2020 12:19 PM 05/20/2020 7:08 PM Care Teams Evp Managing Director Relationship Specialty Start Date End Date Dexter Stanford MD PCP - General Internal Medicine 08/23/20
--- OUTSIDE RECORDS SUMMARY | 2024-12-01 08:20 | XMS_ITS | Clinical Summary ---
Author Organization [facility] Address [address] [place] [address]. [place], [place] [id number] [place] [id number] Care Team Providers Care Senior Designer Name Role Phone Unavailable Primary Care Provider Unavailabl e Social History Tobacco Use Types Packs/Day Years Used Date Smoking Tobacco: Never Assessed Comments Unknown Sex and Gender Information Value Date Recorded Sex Assigned at Not on file Legal Sex Female 4:39 PM CDT Gender Identity Not on file Sexual Orientation Not on file Plan of Treatment Health Maintenance Due Date Last Done Comments Cervical Cancer Screening Pa p Smear (Age 30 to 64) Every 3 Years 1960 Colorectal Cancer Screening Colonoscopy (10 Years) 1960 Annual Physical 1964 Hepatitis C 1979 DTaP, Tdap and Td Vaccines ( 1 - Tdap) 1980 Cervical Cancer Screening Pa p with HPV Testing (Age 30 to 64) Every 5 Years 1991 Cervical Cancer Screening with HPV 1991 Mammogram Screening 2001 Zoster Vaccines (1 of 2) 2011 COVID-19 Vaccine ( - 2023-2 5 season) 2024 Influenza Adult (#1) 2024 RSV Immunization or 60+ Years (1 - 1-dose 75+ series) 2036 Meningococcal B Vaccine Aged Out No l onger eligible based on patient's age to complete this topic Meningococcal Vaccine Aged Out No justin bc eligible based on patient's age to complete this topic Pneumococcal Vaccine: Pediat rics (0 to 5 Years) and At-Risk Patients (6 to 64 Years) Aged Out No longer eligible b ased on patient's age to complete this topic RSV Immunizations Under 20 Months Aged Out No longer eligible based on patient's age to complete this topic
--- OUTSIDE RECORDS SUMMARY | 2024-12-01 08:20 | XMS_ITS | Referral Summary ---
Author Organization [facility] Address [address] [place] [address] Care Team Providers Care Freight Air Brake Fitter Name Role Phone Nahid Kim MD Primary Care Provider [phone] Source Comments [facility],non-owned Affiliates and Associated Physician Practices is amultiple site organization consisting of ambulatory clinics and hospital sitesin [place], [place], [place] and [place]. This disclosure is being madepursuant to the Care Everywhere program and may not contain all information available regarding this patient. Last updated 18.[facility] [employer] Allergies Active Allergy Reactions Criticality Noted Date Comments Cephalexin 11/15/2017 Medications * Be aware that medications may not be up to date on this document. Alwaysverify current medications with the patient. Medication Sig Dispensed Refills Start Date End Date Status escitalopram (LEXAPRO) 20 MG tablet Take 20 mg by mouth once daily Active benzonatate (TESSALON) 100 MG capsuleIndications:Ac [place] bronchitis, unspecified organism Take 1 capsule by mouth 3 times daily as needed for Cough 30 capsule 11/15/2017 Active albuterol HFA (PROVENTIL;VENTOLIN;P ROAIR) 108 (90 BASE) MCG/ACT inhalerIndications:Ac [place] bronchitis, unspecified organism Inhale 2 puffs by mouth every 6 hours as needed for Cough 1 Inhaler 11/15/2017 Active Social History Tobacco Use Types Packs/Day Years Used Date Smoking Tobacco: Former Cigarettes Q uit: 1984 Smokeless Tobacco: Never Sex and Gender Information Value Date Recorded Sex Assigned at Not on file Gender Identity Not on file Sexual Orientation Not on file Last Filed Vital Signs Vital Sign Reading Time Taken Comments Blood Pressure 130/80 11/15/2017 12:25 PM RESTORATION OFFICER Pulse 60 11/15/2017 12:25 PM RESTORATION OFFICER Temperature 36.8 ??C (98.2 ??F) 11/15/2017 12:[address] Respiratory Rate 16 11/15/2017 12:25 PM RESTORATION OFFICER Oxygen Saturation 98% 11/15/2017 12:25 PM RESTORATION OFFICER Inhaled Oxygen Concentration - - Weight 90.7 kg (200 lb) 11/15/2017 12:25 PM RESTORATION OFFICER Height 163.8 cm (5' 4.5 ) 11/15/2017 12:25 PM CS T Body Mass Index 33.8 11/15/2017 12:25 PM RESTORATION OFFICER Plan of Treatment Not on file Care Teams Freight Air Brake Fitter Relationship Specialty Start Date End Date Nahid Kim MD PCP - General Internal Medicine 11/15/17
--- OUTSIDE RECORDS SUMMARY | 2024-12-01 08:20 | XMS_ITS | Clinical Summary ---
Author Organization [facility] Address [address] [place] [address] Care Team Providers Care Folder Seamer Name Role Phone Nahid Kim MD Primary Care Provider Source Comments [facility],non-owned Affiliates and Associated Physician Practices is amultiple site organization consisting of ambulatory clinics and hospital sitesin [place], [place], [place] and [place]. This disclosure is being madepursuant to the Care Everywhere program and may not contain all information available regarding this patient. Last updated 18.[facility] [employer] Allergies Active Allergy Reactions Criticality Noted Date Comments Cephalexin 11/15/2017 Medications * Be aware that medications may not be up to date on this document. Alwaysverify current medications with the patient. Medication Sig Dispensed Refills Start Date End Date Status escitalopram (LEXAPRO) 20 MG tablet Take 20 mg by mouth once daily Active benzonatate (TESSALON) 100 MG capsuleIndications:[place] bronchitis, unspecified organism Take 1 capsule by mouth 3 times daily as needed for Cough 30 capsule 11/15/2017 Active albuterol HFA (PROVENTIL;VENTOLIN;P ROAIR) 108 (90 BASE) MCG/ACT inhalerIndications:[place] bronchitis, unspecified organism Inhale 2 puffs by [...] Comments Blood Pressure 130/80 11/15/2017 12:25 PM PRICE CHANGER Pulse 60 11/15/2017 12:25 PM PRICE CHANGER Temperature 36.8 ??C (98.2 ??F) 11/15/2017 12:[address] Respiratory Rate 16 11/15/2017 12:25 PM PRICE CHANGER Oxygen Saturation 98% 11/15/2017 12:25 PM PRICE CHANGER Inhaled Oxygen Concentration - - Weight 90.7 kg (200 lb) 11/15/2017 12:25 PM PRICE CHANGER Height 163.8 cm (5' 4.5 ) 11/15/2017 12:25 PM CS T Body Mass Index 33.8 11/15/2017 12:25 PM PRICE CHANGER Plan of Treatment Health Maintenance Due Date Last Done Comments COLOGUARD (AGES 45-75) - COL ON CA SCREENING 1960 COLON MONITORING 1961 COLONOSCOPY - COLON CA SCREENING 1961 CT COLONOGRAPHY - COLON CA SCREENING 1960 Colorectal Cancer Screening 1960 FIT - COLON CA SCREENING 1961 FLEX SIG - COLON CA SCREENING 1961 LIPID TESTING 1960 MAMMOGRAM 1960 PAP SMEAR 1961 HIV SCREENING 1976 HEPATITIS C SCREENING 07/13/1979 DTAP/TDAP/TD VACCINES (1 - Tdap) 1980 PNEUMOCOCCAL VACCINE 50+ (1 of 1 - PCV) 2011 ZOSTER VACCINE (1 of 2) 2011 SCREENING FOR DIABETES 11/15/2017 COVID-19 VACCINE ( - 2023-2 5 season) 2024 INFLUENZA VACCINE (#1) 2024 DEPRESSION SCREENING 11/01/2024 Respiratory Syncytial Virus (RSV) Vaccine Pt: or over 60 yrs (1 - 1-dose 75+ series) 2036 HEPATITIS B VACCINE Aged Out No longe r eligible based on patient's age to complete this topic HIB VACCINE Aged Out No longer eligi ble based on patient's age to complete this topic HPV VACCINE Aged Out No longer eligi ble based on patient's age to complete this topic MENINGOCOCCAL (Group B) VACCINE Aged Out No longer eligible based on patient's age to complete this topic MENINGOCOCCAL VACCINE Aged Out No justin bc eligible based on patient's age to complete this topic PNEUMOCOCCAL VACCINE Aged Out No long er eligible based on patient's age to complete this topic Care Teams Folder Seamer Relationship Specialty Start Date End Date Nahid Kim MD PCP - General Internal Medicine 11/15/17
--- OUTSIDE RECORDS SUMMARY | 2024-12-01 08:20 | XMS_ITS ---
Author Organization [facility] al Address [address] [place] [address] Care Team Providers Care Emergency Response Officer Name Role Phone Dexter Stanford MD Primary Care Provider [phone] Active Problems Problem Noted Date Diagnosed Date Malignant neoplasm of upper- outer quadrant of right female breast 08/31/2024 Malignant neoplasm of upper- outer quadrant of right breast in female, estrogen receptor positive 05/20/2024 Palpitations 08/22/2020 Nasal congestion 12/14/2019 Assessment & Plan (12/14/2019 3:37 PM HAZARDOUS WASTE MANAGEMENT SPECIALIST): She will try to keep her nasal passages moist by using simply Saline liberally throughout the day and the evening to help prevent another episode of epistaxis. She will adjust her humidity setting and climate line temperature as needed. Obstructive sleep apnea 10/12/2019 Assessment & Plan (12/14/2019 3:32 PM HAZARDOUS WASTE MANAGEMENT SPECIALIST): She will wear her APAP set from 4-20 cm water pressure nightly. She will try to increase her sleep time to 7-8 hours nightly. Reviewed with the patient that untreated sleep apnea can increased risk of irregular heart rhythm, congestive heart failure, heart attack and stroke. Assessment & Plan (10/12/2019 4:31 PM HAZARDOUS WASTE MANAGEMENT SPECIALIST): Reviewed and discussed with the patient that [...] 019 Assessment & Plan (10/12/2019 4:31 PM HAZARDOUS WASTE MANAGEMENT SPECIALIST): Reviewed and discussed with the patient that [...] 08/18/2019 Assessment & Plan (12/14/2019 3:33 PM HAZARDOUS WASTE MANAGEMENT SPECIALIST): She will practice good health habits trying to eat more vegetables, fruit and lean protein her diet to help promote weight loss. Assessment & Plan (10/12/2019 4:31 PM HAZARDOUS WASTE MANAGEMENT SPECIALIST): Reviewed and discussed with the patient that [...] study to evaluate for sleep apnea. Vertigo Current Oncology Plans No current plan information found. Past Plans No past plan information found. Radiation Treatments * No radiation treatments are documented for this patient in [facility]. Treatments may have been administered in another system. Lifetime Dose Tracking * Chemical Lifetime Dose Automatic Entry Manual Entr y DLP 2,200 mGycm 2,200 mGycm 0 mGycm
--- OUTSIDE RECORDS SUMMARY | 2024-12-01 08:20 | XMS_ITS | Referral Summary ---
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) 09/27/2024 10:00 AM OCCUPATIONAL PSYCHOLOGIST Office Visit [facility] Surgery [address] [place] [address] 6th [place] [address] Ductal carcinoma in situ (DCIS) of right breast (Primary Dx) 09/21/2024 10:00 AM OCCUPATIONAL PSYCHOLOGIST Office Visit [facility] Surgery [address] [place] [address] [address]th [place] [address] Ductal carcinoma in situ (DCIS) of right breast (Primary Dx) 09/18/2024 Telephone [facility] Surgery [address] [place] [address] [address]th [place] [address] Radha Martinez RN 09/18/2024 4:00 PM OCCUPATIONAL PSYCHOLOGIST Office Visit [facility] Surgery [facility] [address] [place] [phone] Betsy Caballero MD PhD Malignant neoplasm of upper-outer quadrant of right breast in female, estrogen receptor positive (HCC) (Primary Dx) 09/13/2024 10:00 AM OCCUPATIONAL PSYCHOLOGIST Office Visit [facility] Surgery [address] [place] [address] [facility] 6th [place] [phone] Ductal carcinoma in situ (DCIS) of right breast (Primary Dx) 09/08/2024 10:00 AM OCCUPATIONAL PSYCHOLOGIST Office Visit [facility] Surgery [address] [place] [address] 6th [place] [phone] Deepthi Giang PA Ductal carcinoma in situ (DCIS) of right breast (Primary Dx) 08/31/2024 9:53 AM CDT - 09/01/2024 1:30 PM CDT Hospital Encounter [address] [address] Betsy Caballero MD PhD Encounter for preoperative assessment (Primary Dx); Malignant neoplasm of upper-outer quadrant of right breast in female, estrogen receptor positive (HCC) Discharge Disposition: Discharge to home or self care 08/31/2024 Orders Only [facility] Surgery [address] [place] [phone] Betsy Caballero MD PhD 08/31/2024 12:05 PM CDT - 08/31/2024 4:40 PM CDT Surgery [facility] Operating [facility] [address] [place] [phone] Betsy Caballero MD PhD (COMBO: AFT/SACKS) MASTECTOMY BILATERAL 08/31/2024 1:35 PM CDT Anesthesia Event [facility] Operating [facility] [address] [place] [phone] Colin Lopez MD DDS Carolina Palafox NP from Last 3 Months Allergies Active Allergy Reactions Criticality Noted Date Comments Cephalexin Hives,Rash Medium Latex Rash Medium 12/02/2023 If bandaid is on too long Medications escitalopram (LEXAPRO) 20 mg tablet Take 1 tablet (20 mg total) by mouth every morning Active VITAMIN B COMPLEX ORAL Take 1 capsule by mouth chicken and fish butcher before breakfast Active ascorbic acid (vitamin C) 1,000 mg tablet Take 1 tablet (1,000 mg total) by mouth chicken and fish butcher before breakfast Active dilTIAZem CD 120 mg 24 hr capsule TAKE 1 CAPSULE BY MOUTH EVERY DAY 90 capsule 3 4 Active azelastine (ASTELIN) 137 mcg (0.1 %) nasal spray Administer 1 spray into affected nostril(s) chicken and fish butcher before breakfast [address] (PROTONIX) 40 mg EC tablet Take 1 tablet (40 mg total) by mouth chicken and fish butcher before breakfast 4 Active calcium-vits J0-U-M5-mineral s 166.75 mg- 166.75 unit capsule Take 1 capsule by mouth chicken and fish butcher before breakfast 4 Active vit C/vit E/lutein/min/om ega-3 (OCUVITE ORAL) Take 1 tablet by mouth chicken and fish butcher before breakfast Active cyanocobalamin, vitamin B-12, (VITAMIN B-12 ORAL) Take 1 tablet by mouth chicken and fish butcher before breakfast Active MULTIVITAMIN ORAL Take 1 tablet/capsule by mouth chicken and fish butcher before breakfast Active BIOTIN ORAL Take 1 capsule by mouth chicken and fish butcher before breakfast Active omega-3s/dha/ep a/fish oil (OMEGA 3 ORAL) Take 1 capsule by mouth chicken and fish butcher before breakfast Active Xarelto 20 mg tablet [...] 12/14/2019 Assessment & Plan (12/14/2019 3:37 PM OCCUPATIONAL PSYCHOLOGIST): She will try to keep her nasal passages moist by using simply Saline liberally throughout the day and the evening to help prevent another episode of epistaxis. She will adjust her humidity setting and climate line temperature as needed. Obstructive sleep apnea 10/12/2019 Assessment & Plan (12/14/2019 3:32 PM OCCUPATIONAL PSYCHOLOGIST): She will wear her APAP set from 4-20 cm water pressure nightly. She will try to increase her sleep time to 7-8 hours nightly. Reviewed with the patient that untreated sleep apnea can increased risk of irregular heart rhythm, congestive heart failure, heart attack and stroke. Assessment & Plan (10/12/2019 4:31 PM OCCUPATIONAL PSYCHOLOGIST): Reviewed and discussed with the patient that [...] 019 Assessment & Plan (10/12/2019 4:31 PM OCCUPATIONAL PSYCHOLOGIST): Reviewed and discussed with the patient that [...] 08/18/2019 Assessment & Plan (12/14/2019 3:33 PM OCCUPATIONAL PSYCHOLOGIST): She will practice good health habits trying to eat more vegetables, fruit and lean protein her diet to help promote weight loss. Assessment & Plan (10/12/2019 4:31 PM OCCUPATIONAL PSYCHOLOGIST): Reviewed and discussed with the patient that [...] study to evaluate for sleep apnea. Vertigo Immunizations Name Administration Dates Next Due Influenza, Quadrivalent, Pita l Culture-based MDCK, Preservative Free, Antibiotic Free, Intramuscular 08/09/2019 Influenza, Quadrivalent, Spl it, Preservative Free, Intramuscular 07/11/2018 Social History Tobacco Use Types Packs/Day Years [...] on file Legal Sex Female 11:52 PM OCCUPATIONAL PSYCHOLOGIST Gender Identity Female 08/14/2020 7:08 AM CDT Sexual Orientation Straight 08/01/2019 1: 38 PM CDT Last Filed Vital Signs Vital Sign Reading [...] 08/31/2024 11:04 AM CDT Plan of Treatment Not on file Medical Devices Implanted Type Area Management Planner Device Identifier Shelf Expiration Date Model / Serial / Lot [employer] Commercial Roofer Tissue 15x13.8cm Breast 600-720cc Smooth Srfc Allox2-Fh15se - [id number] - [id number] Implanted:Qty: 1 on 08/31/2024 by Betsy Caballero MD PhD at [facility] Breast Left: Breast [employer] ALLOX2-F H15SE / [id number] / [employer] Magtrace Liquid Marker 10 Vial Carton [id number] - [id number] Implanted:Qty: 1 on 08/31/2024 by Betsy Caballero MD PhD at [facility] Other - see comments Right: Breast [employer] 08/31/2026 [id number] / [id number] Breast Biopsy Marker Breast [employer] Eviva 13cm Identifier Biopsy Site Karaw-[id number] - [id number] Implanted:Qty: 1 on 04/25/2024 at [facility] [employer] [id number] 12/26/2025 [facility] EDDIE-13 / / [id number] [employer] Commercial Roofer Tissue 15x13.8cm Breast 600-720cc Smooth Srfc Allox2-Fh15se - [id number] - [id number] Implanted:Qty: 1 on 08/31/2024 by Aft, Betsy Marc MD PhD at [facility] Right: Breast [employer] ALLOX2-F H15SE / [id number] / Procedures Procedure Name Priority Date/Time [...] Senitmag needed day of surgery INSERTION TISSUE DIVISIONAL MERCHANDISING MANAGER - BREAST 08/31/2024 1:35 PM CDT Malignant [...] Special Needs Senitmag needed day of surgery [place] AN PROCEDURE PLACEHOLDER Routine 08/31/2024 12:44 PM CDT FL AN PROCEDURE PLACEHOLDER Routine 08/31/2024 12:43 PM CDT ANESTHESIA PERIPHERAL BLOCK Routine 08/31/2024 12:43 PM CDT FL AN PROCEDURE PLACEHOLDER Routine 08/31/2024 12:42 PM [...] 2:58 PM CDT Narrative 09/05/2024 12:28 PM OCCUPATIONAL PSYCHOLOGIST EPIC results best viewed via link to PDF [facility] [place] [address] Note to Patients: This report may contain [...] Gender: ??F : ??1960 (Age: 64) Address: ??[address] [place] [address] ??[id number] Hospital #: ??[id number] Taken:08/31/2024 Received:08/31/2024 Reported: 09/05/2024 Patient Type: [facility] OP In Bed ?? Service: Surgery Location: [place] [address] Physician(s): ??Elvis Metz M.D. Manish Mathur, M.D. [...] ? - No atypical or malignant findings [facility]/09/05/2024 09:27 By this signature, I attest that [...] lymph node with Mag trace, insertion tissue organizational development consultant bilateral breast, adjacent tissue transfer bilateral breasts [...] -Diagram: ??No -Summary of sections: ? C1-C2 [address] upper outer quadrant, slices 9 and 12 ? C3-C4 [address] lower outer quadrant, slices 10 and 12 ? C5-C6 Representativeupper inner quadrant, slices 2 and 6 ? C7-C8 [address] lower inner quadrant, slices 3 and 5 [...] ?Breast Biomarker Testing performed on Previous Case: [id number] ? Estrogen Receptor (ER): ?Positive ??Papito score [...] Surgical Pathology and Flow Cytometry Departments at [facility] as part of an ongoing engagement quality consultant program and in compliance with federally mandated [...] Surgical Pathology and Flow Cytometry Departments of [facility]. ??It has not been cleared or approved by the U. S. Food and Drug Administration. IMAGES AND SCANNED DOCUMENTS, IF INCLUDED, ONLY VIEWABLE IN PDF VERSION OF REPORT Betsy Caballero MD PhD LAB PATHOLOGY ORDERABLES [...] aborted and used video us Colin Lopez MD, DDS ANESTHESIA ORDERABLES Diana l Result * [place] AN PROCEDURE PLACEHOLDER (08/31/2024 12:44 PM CDT) [...] MD ANESTHESIA ORDERABLES Final R esult * [place] AN PROCEDURE PLACEHOLDER (08/31/2024 12:43 PM CDT) [...] patient tolerated procedure well with no complications Keyon Mixon MD ANESTHESIA ORDERABLES Final Resu [...] patient tolerated procedure well with no complications Result [facility] us Emilee Parham MD ANESTHESIA ORDERABLES Final Re sult * [place] AN PROCEDURE PLACEHOLDER (08/31/2024 12:42 PM CDT) [...] tolerated procedure well with no complications us Emilee Parham MD ANESTHESIA ORDERABLES Final Re sult * Screening Mammogram Bilateral W [place] (04/14/2024 12:46 PM CDT) Anatomical Region Laterality Modality Breast Bilateral Mammography Narrative 04/17/2024 4:44 PM CDT Mammogram Technique: Bilateral Digital Breast Tomosynthesis, Bilateral C-view 2D Screening mammogram. ??Views obtained: ??bilateral craniocaudal and bilateral mediolateral oblique. ??Computer Aided Detection was performed. Mammogram Findings: The present examination has been compared to prior imaging studies performed at [facility] on 03/30/2020, 03/10/2021 and 04/06/2023. There are [...] compared to prior imaging studies performed at [facility] on 03/30/2020, 03/10/2021 and 04/06/2023. There are [...] CATEGORY 0: Incomplete: Need additional imaging evaluation. us Self Screening Mammogram IMG MAMMO PROCEDURES Fi nal Result * COLONOSCOPY (05/20/2020 1:08 PM CDT) Anatomical Region Laterality Modality Other Narrative Procedure Note Chirag Das MD - 05/20/2020 1:08 PM CDT GI ENDOSCOPY [facility] Patient Name: Humphrey Blanco Procedure Date: 05/20/2020 1:08 PM Date of : 1960 Admit Type: Outpatient Age: 59 Gender: Female Attending MD: Josue Siddiqui Room: [facility] ENDOSCOPY ROOM 4 Note Status: Addendum Procedure: [...] The scope was passed under direct vision.The [id number] endoscope was introduced throughthe anus and advanced to the cecum, identified by appendiceal orifice and ileocecal valve. The colonoscopy was performed without difficulty. The patient tolerated the procedure well. The quality of the bowel preparation was evaluated using the BBPS ([place] Bowel Preparation Scale) with scores of:Right Colon [...] performed your colonoscopy will recommend follow-up colonoscopy [facility] based on current guidelines by gastroenterology societies: [...] On: 05/20/2020 1:08 PM Recognized by the [place] [employer]intestinal [employer] for promoting quality in endoscopy Addendum Number: 1 Addendum Date: 05/20/2020 1:50:08 PM - Restart Xarelto tomorrow. Electronically signed by Chirag Das MD Chirag Das M.D. 05/20/2020 1:50:32 PM . Chirag Das MD ENDOSCOPY PROCEDUR ES Edited Result - Final from Last 3 Months or Most Recently Relevant to Health Maintenance Insurance [facility] ACCESS CHOICE ANTHEM ACCESS CHOICE Advance Directives For more information, please contact: [phone] * Full Code (Latest Code Status on File) Date Activated Date Inactivated Comments 08/31/2024 6:32 PM 09/01/2024 6:02 PM * Full Code Date Activated Date Inactivated Comments 05/20/2020 12:19 PM 05/20/2020 7:08 PM Care Teams Paleontological Helper Relationship Specialty Start Date End Date Dexter Stanford MD PCP - General Internal Medicine 08/23/20
[2024-12-01 08:50] LABS: Hemoglobin 12.6 g/dL (12.0-15.0)
[2024-12-01 09:02] LABS: Alanine Aminotransferase 15 U/L (6-35); Albumin Level 4.3 g/dL (3.5-5.1); Alkaline Phosphatase 68 U/L (38-126); Amylase 68 U/L (30-110); Aspartate Amino Transferase 23 U/L (14-36); Bilirubin,Total 0.5 mg/dL (0.2-1.3); Lipase 126 U/L (23-300)
== END 2024-12-01 08:07 | disposition home or self-care (01) ==
PROVIDERS: Anesthesiology; PCP Internal Medicine; Visit Provider Surgery
DX: Z01.818 Encounter for other preprocedural examination (principal); R94.31 Abnormal electrocardiogram [ECG] [EKG]; D64.9 Anemia, unspecified; K80.20 Calculus of gallbladder without cholecystitis without obstruction; I48.91 Unspecified atrial fibrillation
CPT/HCPCS: 36415; 80076; 82150; 83690; 85014; 85018; 93005

== ENCOUNTER 2024-12-08 00:22 | Day surgery (SDC) | payer BC, SELFPAY ==
[2024-11-28 08:34] VITALS: BMI 32.7
--- NOTE | 2024-11-28 08:35 | PC.NURSE ---
Report to the Outpatient Waiting Room, entrance under the green pavilion located off [facility], at time _1000_ on date _[id number]_. Planned Procedure Time: _1200_.? Time changes happen often and if your time is changed the preop area will call you the afternoon before. - You and your visitor will be asked to self-screen and do not enter if you have any COVID symptoms. Please call surgeon if you need to reschedule. - A mask is optional within the hospital at this time. Patients may have clear liquids (water, carbonated beverages, clear teas, apple juice) until 3 hours prior to surgery with a maximum of 20 ounces. - No food from midnight until time of surgery and no smoking. This includes no chewing gum, candy or mints. Take only the following medications with a SIP of water on the morning of surgery: ___Diltiazem, Azestaline DO NOT STOP ANY OF YOUR OTHER PRESCRIPTION MEDICATIONS PRIOR TO SURGERY EXCEPT THE FOLLOWING Medications to discontinue per physician __Xarelto Date to take last ckss___[id number] as told by 's office. Hold all vitamins and supplements for 3 days per anesthesiologist. Please no make-up, nail kyrgyz, hairspray, perfume, deodorant, or body powder the day of surgery.? No jewelry (including any body piercings) or valuables the day of surgery, leave them at home.? Please take a shower or bath the night before, or the morning of, surgery with an antibacterial soap.? Wear comfortable, loose fitting clothing.? - Jewelry must be removed prior to entering the operating room.? Rings and piercings that are not removed may be cut off. - The hospital will not accept responsibility for valuables.? - Please leave all valuables, including medications, at home the day of surgery. If you are going home after surgery, a licensed services delivery driver must drive you home.? - NO public transportation without another adult if you receive anesthesia. - We recommend that an adult stay with you for 24 hours following discharge. - We also recommend that you do not drive, make important decision, drink alcoholic beverages, or take any drugs that were not prescribed by your health care provider for at least 24 hours after your discharge time. Follow any additional instructions given to you from your surgeon. Telephone instructions given to __Tammie___and asked if any additional questions and then verbalized understanding. Patient advised to call surgeon office or pre surgery nurse liaison [phone] if any additional questions.
[2024-12-08] VITALS (8 sets, daily range): BP systolic 133–154; BP diastolic 66–91; PULSE 50–62; RESP 12–20; TEMP 36.3–36.7; O2SAT 99–100
--- OUTSIDE RECORDS SUMMARY | 2024-12-08 00:25 | XMS_ITS | Clinical Summary ---
Author Organization [facility] Address [address] [place] [address] Phone Care Team Providers Care Merchandise Planning Manager Name Role Phone Dexter Stanford MD Primary Care Provider [phone] Allergies Active Allergy Reactions Criticality Noted Date Comments Cephalexin Rash Medium 09/15/2023 Emmett like I was on fire Latex Rash Low 12/02/2023 If bandaid is on too long Medications spironolactone (ALDACTONE) 25 mg tablet Take 25 mg by mouth daily. Active rivaroxaban (XARELTO) 20 mg Tablet Take 20 mg by mouth daily at bedtime. Active escitalopram oxalate (LEXAPRO) 20 mg tablet Take 20 mg by mouth daily at bedtime. Active diltiaZEM (CARDIZEM CD) 120 mg Controlled Delivery 24 hour capsule Take 120 mg by mouth daily at bedtime. Active KRILL OIL ORAL Take 350 mcg by mouth daily at bedtime. Active losartan-hydroC HLOROthiazide (HYZAAR) 100-12.5 mg tablet Take 1 Tablet by mouth daily. 3 Active azelastine (ASTELIN) 137 mcg/actuation nasal spray Administer 1 Milton in each nostril daily at bedtime. Per patient takes at bedtime 3 Active aspirin-acetami nophen-caffeine (EXCEDRIN EXTRA STRENGTH) 250-250-65 mg Tablet Take 1 Tablet by mouth every 4 hours as needed for Headaches. Active oxyCODONE (ROXICODONE) 5 mg/5 mL solutionIndicat ions:Obesity (BMI 35.0-39.9 without comorbidity) Take 5 mL (5 mg) by mouth every 4 hours as needed for Break-Through Pain. Max Daily Amount: 30 mg 180 mL 12/14/2023 2:36 PM SAFETY COMPLIANCE SPECIALIST 4 Active famotidine (PEPCID) 20 mg tablet Take 1 Tablet (20 mg) by mouth 2 times daily. 60 Tablet 2 12/14/2023 2:36 PM SAFETY COMPLIANCE SPECIALIST 4 Active ondansetron (Zofran) 4 mg Tablet Take 1 Tablet (4 mg) by mouth every 8 hours as needed for Nausea/Vomiting 50 Tablet 12/14/2023 2:36 PM SAFETY COMPLIANCE SPECIALIST 4 Active naloxone (NARCAN) 4 mg/spray Milton, Non-Aerosol EMERGENCY USE ONLY: Administer 1 spray (4 mg) in one nostril one time. May repeat in alternating nostrils every 2-3 min until responsive or EMS arrives. 2 Each 3 4 Active Encounters Date Type Department Care Team Description 12/05/2024 External Device Data [facility] ABSTRACTION Provider, Abstract 11/14/2024 External Device Data [facility] ABSTRACTION Provider, Abstract from Last 3 Months Family History Medical History Relation Name Comments Diabetes Brother 1 Heart Attack Father Colon Cancer Mother COPD Sister 1 Relation Name Status Comments Brother 1 Alive Brother 2 Alive Brother 3 Alive Father Maternal Grandmother Alive Maternal Great-grandparent Alive Mother Sister 1 Sister 2 Alive Social History Tobacco Use Types Packs/Day Years Used Date Smoking Tobacco: Never Smokeless Tobacco: Never Tobacco Cessation:Counseling Given: Not Answered Alcohol Use Standard Drinks/Week Comments Yes 0 (1 standard drink = 0.6 oz pur e alcohol) rarely Feeling Safe Answer Date Recorded Are you in a relationship wi th someone who hurts you emotionally and/or physically? No 12/13/2023 Food Insecurity Answer Date Recorded Social/Environmental Concerns No concerns Transportation Needs Answer Date Record ed Social/Environmental Concerns No concerns Housing Stability Answer Date Recorded Social/Environmental Concerns No concerns Utility Needs Answer Date Recorded Social/Environmental Concerns No concerns Comments No Sex and Gender Information Value Date Recorded Sex Assigned at Female 10/30/2024 9:13 PM SAFETY COMPLIANCE SPECIALIST Legal Sex Female 11:26 AM SAFETY COMPLIANCE SPECIALIST Gender Identity Female 10/30/2024 9:13 PM SAFETY COMPLIANCE SPECIALIST Sexual Orientation Straight 10/30/2024 9: 13 PM SAFETY COMPLIANCE SPECIALIST Last Filed Vital Signs Vital Sign Reading Time Taken Comments Blood Pressure 138/75 12/14/2023 11:00 AM SAFETY COMPLIANCE SPECIALIST Pulse 60 12/14/2023 11:00 AM SAFETY COMPLIANCE SPECIALIST Temperature 36.6 C (97.9 F) 12/14/2023 11:00 AM SAFETY COMPLIANCE SPECIALIST Respiratory Rate 16 12/14/2023 11:00 AM SAFETY COMPLIANCE SPECIALIST Oxygen Saturation 97% 12/14/2023 11:00 AM SAFETY COMPLIANCE SPECIALIST Inhaled Oxygen Concentration - - Weight 103 kg (227 lb) 12/13/2023 6:15 PM SAFETY COMPLIANCE SPECIALIST Height 162.6 cm (5' 4 ) 12/13/2023 6:15 PM SAFETY COMPLIANCE SPECIALIST Body Mass Index 38.96 12/13/2023 6:15 PM SAFETY COMPLIANCE SPECIALIST Plan of Treatment Health Maintenance Due Date Last Done Comments Pre-Diabetes and Diabetes Screening 1960 DTAP/TDAP/TD VACCINES (1 - Tdap) 1980 CERVICAL CANCER SCREENING 1991 FIT-DNA Q 3 years 2006 FIT/FOBT Q 1 year 2006 Flex Sig/CT Colonography Q 5 years 2006 ZOSTER VACCINE (1 of 2) 2011 RSV VACCINE (60+ or ) (1 - Risk 60-74 years 1-dose series) 2021 BREAST CANCER SCREENING 04/06/2024 04/06/20 23, 03/10/2021, 03/30/2020, Additional history exists COLORECTAL SCREENING 05/20/2030 05/20/2020 Colorectal Cancer Screening 05/20/2030 INFLUENZA VACCINE Completed 08/15/2024, , 07/11/2018 Medical Devices Implanted Type Area Marine Farmer Device Identifier Shelf Expiration Date Model / Serial / Lot Seamguard Endogia 60 Prpl [id number] - [id number] Implanted:Qty : 2 on 12/13/2023 by Nathaniel Coronel MD at [facility] N/A: Abdomen [employer] 01/10/2026 [id number] / / [id number] Seamguard Endogia 60 Blk [id number] - [id number] Implanted:Qty : 2 on 12/13/2023 by Nathaniel Coronel MD at [facility] N/A: [employer] 04/25/2026 [id number] / / [id number] Insurance BCBS BLUE ACCESS/TRUE BLUE PPO RX [facility] RX [place] PLANS (INTERNAL) [facility] Internal Plans Advance Directives For more information, please contact: [phone] * Full Code (Latest Code Status on File) Date Activated Date Inactivated Comments 12/13/2023 6:22 PM 12/14/2023 5:54 PM * Full Code Date Activated Date Inactivated Comments 12/13/2023 9:59 AM 12/13/2023 6:22 PM Care Teams Merchandise Planning Manager Relationship Specialty Start Date End Date Dexter Stanford MD [address] [place] [address] PCP - General Internal Medicine 09/15/23
--- OUTSIDE RECORDS SUMMARY | 2024-12-08 00:25 | XMS_ITS | Clinical Summary ---
Author Organization [facility] Address [address] [place] [address] Care Team Providers Care Php Website Developer Name Role Phone Dexter Stanford MD Primary Care Provider [phone] Allergies Active Allergy Reactions Criticality Noted Date Comments Cephalexin Hives,Rash Medium Latex Rash Medium 12/02/2023 If bandaid is on too long Medications escitalopram (LEXAPRO) 20 mg tablet Take 1 tablet (20 mg total) by mouth every morning Active VITAMIN B COMPLEX ORAL Take 1 capsule by mouth boring machine set up operator jig before breakfast Active ascorbic acid (vitamin C) 1,000 mg tablet Take 1 tablet (1,000 mg total) by mouth boring machine set up operator jig before breakfast Active dilTIAZem CD 120 mg 24 hr capsule TAKE 1 CAPSULE BY MOUTH EVERY DAY 90 capsule 3 4 Active azelastine (ASTELIN) 137 mcg (0.1 %) nasal spray Administer 1 spray into affected nostril(s) boring machine set up operator jig before breakfast [address] (PROTONIX) 40 mg EC tablet Take 1 tablet (40 mg total) by mouth boring machine set up operator jig before breakfast 4 Active calcium-vits X6-A-G5-mineral s 166.75 mg- 166.75 unit capsule Take 1 capsule by mouth boring machine set up operator jig before breakfast 4 Active vit C/vit E/lutein/min/om ega-3 (OCUVITE ORAL) Take 1 tablet by mouth boring machine set up operator jig before breakfast Active cyanocobalamin, vitamin B-12, (VITAMIN B-12 ORAL) Take 1 tablet by mouth boring machine set up operator jig before breakfast Active MULTIVITAMIN ORAL Take 1 tablet/capsule by mouth boring machine set up operator jig before breakfast Active BIOTIN ORAL Take 1 capsule by mouth boring machine set up operator jig before breakfast Active omega-3s/dha/ep a/fish oil (OMEGA 3 ORAL) Take 1 capsule by mouth boring machine set up operator jig before breakfast Active Xarelto 20 mg tablet [...] 12/14/2019 Assessment & Plan (12/14/2019 3:37 PM CHIEF RESERVOIR ENGINEERING): She will try to keep her nasal passages moist by using simply Saline liberally throughout the day and the evening to help prevent another episode of epistaxis. She will adjust her humidity setting and climate line temperature as needed. Obstructive sleep apnea 10/12/2019 Assessment & Plan (12/14/2019 3:32 PM CHIEF RESERVOIR ENGINEERING): She will wear her APAP set from 4-20 cm water pressure nightly. She will try to increase her sleep time to 7-8 hours nightly. Reviewed with the patient that untreated sleep apnea can increased risk of irregular heart rhythm, congestive heart failure, heart attack and stroke. Assessment & Plan (10/12/2019 4:31 PM CHIEF RESERVOIR ENGINEERING): Reviewed and discussed with the patient that [...] 019 Assessment & Plan (10/12/2019 4:31 PM CHIEF RESERVOIR ENGINEERING): Reviewed and discussed with the patient that [...] 08/18/2019 Assessment & Plan (12/14/2019 3:33 PM CHIEF RESERVOIR ENGINEERING): She will practice good health habits trying to eat more vegetables, fruit and lean protein her diet to help promote weight loss. Assessment & Plan (10/12/2019 4:31 PM CHIEF RESERVOIR ENGINEERING): Reviewed and discussed with the patient that [...] Department Care Team Description 10/03/2024 2:15 PM CHIEF RESERVOIR ENGINEERING Office Visit [facility] Surgery [address] [place] [address] [place] [id number] Finn Oro MD Acquired absence of bilateral breasts and nipples (Primary Dx) 09/27/2024 10:00 AM CHIEF RESERVOIR ENGINEERING Office Visit [facility] Surgery [address] [place] [address] [place] [address] Ductal carcinoma in situ (DCIS) of right breast (Primary Dx) 09/21/2024 10:00 AM CHIEF RESERVOIR ENGINEERING Office Visit [address] [place] [id number] Ductal carcinoma in situ (DCIS) of right breast (Primary Dx) 09/18/2024 4:00 PM CHIEF RESERVOIR ENGINEERING Office Visit [facility] Surgery [address] [facility] Floor [address] [place] [address] Aft, Betsy Marc MD PhD Malignant neoplasm of upper-outer quadrant of right breast in female, estrogen receptor positive (HCC) (Primary Dx) 09/18/[address] [phone] Radha Martinez RN 09/13/2024 10:00 AM CHIEF RESERVOIR ENGINEERING Office Visit [address] [place] [address] Ductal carcinoma in situ (DCIS) of right breast (Primary Dx) 09/08/2024 10:00 AM CHIEF RESERVOIR ENGINEERING Office Visit [address] [place] [phone] Deepthi Giang PA Ductal carcinoma in situ (DCIS) of right breast (Primary Dx) from Last 3 Months Immunizations Name Administration [...] - (Added by TW Conv) Hypertension Dxd ~2018 Prediabetes Atrial fibrillation (CMS/HCC) (HCC) Treated with [...] - (Added by TW Conv) Arthritis Mother Radha Rich COPD Mother Radahher Rich Family history of chronic obstructive pulmonary [...] on file Legal Sex Female 11:52 PM CHIEF RESERVOIR ENGINEERING Gender Identity Female 08/14/2020 7:08 AM CDT Sexual Orientation Straight 08/01/2019 1: 38 PM CDT Obstetrics History Last Filed Vital Signs Vital Sign Reading Time Taken Comments Blood Pressure 114/56 09/01/2024 8:20 AM CDT Pulse 53 09/01/2024 8:20 AM CDT Temperature 36.8 C (98.2 F) 09/01/2024 8:20 AM CDT Respiratory Rate 16 09/01/2024 8:20 AM CDT [...] this topic Medical Devices Implanted Type Area Program Developer Device Identifier Shelf Expiration Date Model / Serial / Lot S[employer]ra [employer] Pole Truck Driver Tissue 15x13.8cm Breast 600-720cc Smooth Srfc Allox2-Fh15se - [id number] - [id number] Implanted:Qty: 1 on 08/31/2024 by Betsy Caballero MD PhD at [facility] Breast Left: Breast [employer] ALLOX2-F H15SE / [id number] / [employer] Magtrace Liquid Marker 10 Vial Carton [id number] - [id number] Implanted:Qty: 1 on 08/31/2024 by Betsy Caballero MD PhD at [facility] Medicine Other - see comments Right: Breast [employer] 08/31/2026 [id number] / / [id number] Breast Biopsy Marker [facility] Exaptive [employer] Eviva 13cm Identifier Biopsy Site [id number]-[id number] - [id number] Implanted:Qty: 1 on 04/25/2024 at [facility] [employer] [id number] 12/26/2025 SMARK-EV EDDIE-13 / / [id number] Sientra Inc Pole Truck Driver Tissue 15x13.8cm Breast 600-720cc Smooth Srfc Allox2-Fh15se - [id number] - [id number] Implanted:Qty: 1 on 08/31/2024 by Aft, Betsy Marc MD PhD at [facility] Right: Breast [employer] ALLOX2-F H15SE / [id number] / Procedures Procedure Name Priority Date/Time Associated Diagnosis Comments SCREENING MAMMOGRAM BILATERAL W NICOLA Schedule Routine, Read Routine (OP Routine) 04/14/2024 12:46 PM CDT Screening mammogram, encounter for COLONOSCOPY 05/20/2020 1:08 PM CDT from Last 3 Months or Most Recently Relevant to Health Maintenance Results * Screening Mammogram Bilateral W Nicola (04/14/2024 12:46 PM CDT) Anatomical Region Laterality Modality Breast Bilateral Mammography Narrative 04/17/2024 4:44 PM CDT Mammogram Technique: Bilateral Digital Breast Tomosynthesis, Bilateral C-view 2D Screening mammogram. Views obtained: bilateral craniocaudal and bilateral mediolateral oblique. Computer Aided Detection was performed. Mammogram Findings: The present examination has been compared to prior imaging studies performed at [facility] on 03/30/2020, 03/10/2021 and 04/06/2023. There [...] CATEGORY 0: Incomplete: Need additional imaging evaluation. Procedure Note Jeannette Vargas MD - 04/17/2024 Mammogram Technique: Bilateral Digital Breast Tomosynthesis, Bilateral C-view 2D Screening mammogram. Views obtained: bilateral craniocaudal and bilateral mediolateral oblique. Computer Aided Detection was performed. Mammogram Findings: The present examination has been compared to prior imaging studies performed at [facility] on 03/30/2020, 03/10/2021 and 04/06/2023. There [...] Laterality Modality Other Narrative Procedure Note Chirag Dsa MD - 05/20/2020 1:08 PM CDT [facility] Patient Name: Humphrey Blanco Procedure Date: 05/20/2020 1:08 PM Date of : 1960 Admit Type: Outpatient Age: 59 Gender: Female Attending MD: Josue Siddiqui Room: [facility] END[facility]COPY RO[facility] 4 Note Status: Addendum Procedure: [...] The scope was passed under direct vision.The [id number] endoscope was introduced throughthe anus and advanced to the cecum, identified by appendiceal orifice and ileocecal valve. The colonoscopy was performed without difficulty. The patient tolerated the procedure well. The quality of the bowel preparation was evaluated using the BBPS ([place]land Bowel Preparation Scale) with scores of:Right Colon [...] today. After the pathology result of the polyp(s) is reviewed, the doctor who performed your colonoscopy will recommend follow-up colonoscopy toyou based on current guidelines by gastroenterology societies: - If only small hyperplastic polyps from the rectumor sigmoid were removed, repeat the colonoscopy in 10 years. - If 1 or 2 polyps less than 1 cm in size areadenomas, repeat the colonoscopy in 5 years. - If 3 or more polyps are adenomas, repeat the colonoscopy in 3 years. - If there are 10 or more adenomas, repeat the colonoscopy in 1 year. - If any polyp is 10 mm or greater in size, hasvillous histology or high grade dysplasia, repeat the colonoscopy in 3 years. - If a [...] On: 05/20/2020 1:08 PM Recognized by the [place] Society [employer] Gastrointestinal Endoscopy for promoting quality in endoscopy Addendum Number: 1 Addendum Date: 05/20/2020 1:50:08 PM - Restart Varsha tomorrow. Electronically signed by Chirag Das MD Chirag Das M.D. 05/20/2020 1:50:32 PM . Chirag Das MD ENDOSCOPY PROCEDUR ES Edited Result - Final from Last 3 Months or Most Recently Relevant to Health Maintenance Insurance [employer] CHOICE BLUE ACCESS OOS ANTHEM ACCESS CHOICE Advance Directives For more information, please contact: [phone] * Full Code (Latest Code Status on File) Date Activated Date Inactivated Comments 08/31/2024 6:32 PM 09/01/2024 6:02 PM * Full Code Date Activated Date Inactivated Comments 05/20/2020 12:19 PM 05/20/2020 7:08 PM Care Teams Php Website Developer Relationship Specialty Start Date End Date Dexter Stanford MD PCP - General Internal Medicine 08/23/20
--- OUTSIDE RECORDS SUMMARY | 2024-12-08 00:25 | XMS_ITS ---
Author Organization [facility] Address [address] [place] [address] Care Team Providers Care Bead Preparer Name Role Phone Dexter Stanford MD Primary Care Provider [phone] Active Problems Problem Noted Date Diagnosed Date Malignant neoplasm of upper- outer quadrant of right female breast 08/31/2024 Malignant neoplasm of upper- outer quadrant of right breast in female, estrogen receptor positive 05/20/2024 Palpitations 08/22/2020 Nasal congestion 12/14/2019 Assessment & Plan (12/14/2019 3:37 PM OVERNIGHT CAREGIVER): She will try to keep her nasal passages moist by using simply Saline liberally throughout the day and the evening to help prevent another episode of epistaxis. She will adjust her humidity setting and climate line temperature as needed. Obstructive sleep apnea 10/12/2019 Assessment & Plan (12/14/2019 3:32 PM OVERNIGHT CAREGIVER): She will wear her APAP set from 4-20 cm water pressure nightly. She will try to increase her sleep time to 7-8 hours nightly. Reviewed with the patient that untreated sleep apnea can increased risk of irregular heart rhythm, congestive heart failure, heart attack and stroke. Assessment & Plan (10/12/2019 4:31 PM OVERNIGHT CAREGIVER): Reviewed and discussed with the patient that [...] 019 Assessment & Plan (10/12/2019 4:31 PM OVERNIGHT CAREGIVER): Reviewed and discussed with the patient that [...] 08/18/2019 Assessment & Plan (12/14/2019 3:33 PM OVERNIGHT CAREGIVER): She will practice good health habits trying to eat more vegetables, fruit and lean protein her diet to help promote weight loss. Assessment & Plan (10/12/2019 4:31 PM OVERNIGHT CAREGIVER): Reviewed and discussed with the patient that [...] treatments are documented for this patient in [facility]. Treatments may have been administered in another system. Lifetime Dose Tracking * Chemical Lifetime Dose Automatic Entry Manual Entr y DLP 2,200 mGycm 2,200 mGycm 0 mGycm
--- OUTSIDE RECORDS SUMMARY | 2024-12-08 00:25 | XMS_ITS | Clinical Summary ---
Author Organization [facility] Address [address] [place] [address] Care Team Providers Care Soil Chemist Name Role Phone Unavailable Primary Care Provider [...] Vaccines (1 of 2) 2011 COVID-19 Vaccine (2023-2 5 season) 2024 Influenza Adult (#1) 2024 [...]
--- OUTSIDE RECORDS SUMMARY | 2024-12-08 00:25 | XMS_ITS | Referral Summary ---
Author Organization [facility] Address [address] [place] [address] Care Team Providers Care Engineering Faculty Name Role Phone Nahid Kim MD Primary Care Provider [phone] Source Comments [facility],non-owned Affiliates and Associated Physician Practices is amultiple site organization consisting of ambulatory clinics and hospital sitesin [place], [place], [place] and [place]. This disclosure is being madepursuant to the Care Everywhere program and may not contain all information available regarding this patient. Last updated 18.[email or web address] Allergies Active Allergy Reactions Criticality Noted Date Comments Cephalexin 11/15/2017 Medications * Be aware that medications may not be up to date on this document. Alwaysverify current medications with the patient. Medication Sig Dispensed Refills Start Date End Date Status escitalopram (LEXAPRO) 20 MG tablet Take 20 mg by mouth once daily Active benzonatate (TESSALON) 100 MG capsuleIndications:Ac [place] bronchitis, unspecified organism Take 1 capsule by mouth 3 times daily as needed for Cough 30 capsule 11/15/2017 Active albuterol HFA (PROVENTIL;VENTOLIN;P ROAIR) 108 (90 BASE) MCG/ACT inhalerIndications:Ac [place] bronchitis, unspecified organism Inhale 2 puffs by [...] Comments Blood Pressure 130/80 11/15/2017 12:25 PM MACHINE CHAIN MAKER Pulse 60 11/15/2017 12:25 PM MACHINE CHAIN MAKER Temperature 36.8 C (98.2 F) 11/15/2017 12:25 PM MACHINE CHAIN MAKER Respiratory Rate 16 11/15/2017 12:25 PM MACHINE CHAIN MAKER Oxygen Saturation 98% 11/15/2017 12:25 PM MACHINE CHAIN MAKER Inhaled Oxygen Concentration - - Weight 90.7 kg (200 lb) 11/15/2017 12:25 PM MACHINE CHAIN MAKER Height 163.8 cm (5' 4.5 ) 11/15/2017 12:25 PM CS T Body Mass Index 33.8 11/15/2017 12:25 PM MACHINE CHAIN MAKER Plan of Treatment Not on file Care Teams Engineering Faculty Relationship Specialty Start Date End Date Nahid Kim MD PCP - General Internal Medicine 11/15/17
--- OUTSIDE RECORDS SUMMARY | 2024-12-08 00:25 | XMS_ITS | Clinical Summary ---
Author Organization [facility] Address [address] [place] [address] Care Team Providers Care Supervisor Coating Name Role Phone Nahid Kim MD Primary Care Provider [phone] Source Comments [facility],non-owned Affiliates and Associated Physician Practices is amultiple site organization consisting of ambulatory clinics and hospital sitesin [place], [place], [place] and [place]. This disclosure is being madepursuant to the Care Everywhere program and may not contain all information available regarding this patient. Last updated 18.[facility] [employer] Allergies Active Allergy Reactions Criticality Noted Date Comments Cephalexin 11/15/2017 Medications * Be aware that medications may not be up to date on this document. Alwaysverify current medications with the patient. Medication Sig Dispensed Refills Start Date End Date Status escitalopram (LEXAPRO) 20 MG tablet Take 20 mg by mouth once daily Active benzonatate (TESSALON) 100 MG capsuleIndications:Ac [place] bronchitis, unspecified organism Take 1 capsule by mouth 3 times daily as needed for Cough 30 capsule 11/15/2017 Active albuterol HFA (PROVENTIL;VENTOLIN;P ROAIR) 108 (90 BASE) MCG/ACT inhalerIndications:Ac [place] bronchitis, unspecified organism Inhale 2 puffs by [...] Comments Blood Pressure 130/80 11/15/2017 12:25 PM CHEMICAL PROCESSING SUPERVISOR Pulse 60 11/15/2017 12:25 PM CHEMICAL PROCESSING SUPERVISOR Temperature 36.8 C (98.2 F) 11/15/2017 12:25 PM CHEMICAL PROCESSING SUPERVISOR Respiratory Rate 16 11/15/2017 12:25 PM CHEMICAL PROCESSING SUPERVISOR Oxygen Saturation 98% 11/15/2017 12:25 PM CHEMICAL PROCESSING SUPERVISOR Inhaled Oxygen Concentration - - Weight 90.7 kg (200 lb) 11/15/2017 12:25 PM CHEMICAL PROCESSING SUPERVISOR Height 163.8 cm (5' 4.5 ) 11/15/2017 12:25 PM CS T Body Mass Index 33.8 11/15/2017 12:25 PM CHEMICAL PROCESSING SUPERVISOR Plan of Treatment Health Maintenance Due Date [...] age to complete this topic Care Teams Supervisor Coating Relationship Specialty Start Date End Date Nahid Kim MD PCP - General Internal Medicine 11/15/17
--- OUTSIDE RECORDS SUMMARY | 2024-12-08 00:25 | XMS_ITS | Patient Health Summary ---
Author Organization [facility] Address [address] [place] [address] Care Team Providers Care Flow Manager Name Role Phone Nahid Kim MD Primary Care Provider [phone] Note from [facility] [place]note 2],non-owned Affiliates and Associated Physician Practices is amultiple site organization consisting of ambulatory clinics and hospital sitesin [place], [place] and [place]. This disclosure is being madepursuant to the Care Everywhere program and may not contain all information available regarding this patient. Last updated 18.[facility] Allergies * Cephalexin Medications * Be aware [...] Comments Blood Pressure 130/80 11/15/2017 12:25 PM SCHEDULING ANALYST Pulse 60 11/15/2017 12:25 PM SCHEDULING ANALYST Temperature 36.8 C (98.2 F) 11/15/2017 12:25 PM SCHEDULING ANALYST Respiratory Rate 16 11/15/2017 12:25 PM SCHEDULING ANALYST Oxygen Saturation 98% 11/15/2017 12:25 PM SCHEDULING ANALYST Inhaled Oxygen Concentration - - Weight 90.7 kg (200 lb) 11/15/2017 12:25 PM SCHEDULING ANALYST Height 163.8 cm (5' 4.5 ) 11/15/2017 12:25 PM CS T Body Mass Index 33.8 11/15/2017 12:25 PM SCHEDULING ANALYST Procedures * INFLUENZA A+B - POINT OF CARE (AMB)(Performed 11/15/2017) Performed for Acute bronchitis, unspecified organism Results * INFLUENZA A+B - POINT OF CARE (AMB) (11/15/2017) Influenza A Antigen Rapid Negative Negative Influenza B Antigen Rapid Negative Negative Influenza Internal Control yes NEGATIVE - POSITIVE Influenza Lot Number [id number] Influenza Expiration Date 07/16/19 Other NASOPHARYNGEAL SWAB / Unknown 11/15/2017 Salima Verdugo DENTAL APPLIANCE REPAIRER-AUTOMOTIVE LEASING SALES REPRESENTATIVE LAB - POINT OF CA RE ORDERABLES Care Teams Flow Manager Relationship Specialty Start Date End Date Nahid Kim MD PCP - General Internal Medicine 11/15/17
--- OUTSIDE RECORDS SUMMARY | 2024-12-08 00:25 | XMS_ITS | Referral Summary ---
Author Organization [facility] al Address [address] [place] [address] Care Team Providers Care Disability Insurance Hearing Officer Name Role Phone Dexter Stanford MD Primary Care Provider [phone] Encounters Date Type Department Care Team Description 10/03/2024 2:15 PM REGISTERED NURSE BONE MARROW TRANSPLANT Office Visit [facility] [address] [place] [address] 6th [place] [address] Finn Oro MD Acquired absence of bilateral breasts and nipples (Primary Dx) 09/27/2024 10:00 AM REGISTERED NURSE BONE MARROW TRANSPLANT Office Visit [facility] [address] [place] [address] 6th [place] [address] Ductal carcinoma in situ (DCIS) of right breast (Primary Dx) 09/21/2024 10:00 AM REGISTERED NURSE BONE MARROW TRANSPLANT Office Visit [facility] [address] [place] [address] 6th [place] [address] Ductal carcinoma in situ (DCIS) of right breast (Primary Dx) 09/18/2024 Telephone [facility] [address] [place] [address] 6th [place] [address] Radha Martinez RN 09/18/2024 4:00 PM REGISTERED NURSE BONE MARROW TRANSPLANT Office Visit [facility] [address] [place] [phone] Aft, Betsy Marc MD PhD Malignant neoplasm of upper-outer quadrant of right breast in female, estrogen receptor positive (HCC) (Primary Dx) 09/13/2024 10:00 AM REGISTERED NURSE BONE MARROW TRANSPLANT Office Visit [facility] [address] [place] [address] [place] [phone] Ductal carcinoma in situ (DCIS) of right breast (Primary Dx) 09/08/2024 10:00 AM REGISTERED NURSE BONE MARROW TRANSPLANT Office Visit [facility] [address]th [place] [address] [place] [phone] Deepthi Giang PA Ductal carcinoma in situ (DCIS) of right breast (Primary Dx) from Last 3 Months Allergies Active Allergy Reactions Criticality Noted Date Comments Cephalexin Hives,Rash Medium Latex Rash Medium 12/02/2023 If bandaid is on too long Medications escitalopram (LEXAPRO) 20 mg tablet Take 1 tablet (20 mg total) by mouth every morning Active VITAMIN B COMPLEX ORAL Take 1 capsule by mouth flight surgeon before breakfast Active ascorbic acid (vitamin C) 1,000 mg tablet Take 1 tablet (1,000 mg total) by mouth flight surgeon before breakfast Active dilTIAZem CD 120 mg 24 hr capsule TAKE 1 CAPSULE BY MOUTH EVERY DAY 90 capsule 3 4 Active azelastine (ASTELIN) 137 mcg (0.1 %) nasal spray Administer 1 spray into affected nostril(s) flight surgeon before breakfast [address] (PROTONIX) 40 mg EC tablet Take 1 tablet (40 mg total) by mouth flight surgeon before breakfast 4 Active calcium-vits X5-H-P5-mineral s 166.75 mg- 166.75 unit capsule Take 1 capsule by mouth flight surgeon before breakfast 4 Active vit C/vit E/lutein/min/om ega-3 (OCUVITE ORAL) Take 1 tablet by mouth flight surgeon before breakfast Active cyanocobalamin, vitamin B-12, (VITAMIN B-12 ORAL) Take 1 tablet by mouth flight surgeon before breakfast Active MULTIVITAMIN ORAL Take 1 tablet/capsule by mouth flight surgeon before breakfast Active BIOTIN ORAL Take 1 capsule by mouth flight surgeon before breakfast Active omega-3s/dha/ep a/fish oil (OMEGA 3 ORAL) Take 1 capsule by mouth flight surgeon before breakfast Active Xarelto 20 mg tablet [...] 12/14/2019 Assessment & Plan (12/14/2019 3:37 PM REGISTERED NURSE BONE MARROW TRANSPLANT): She will try to keep her nasal passages moist by using simply Saline liberally throughout the day and the evening to help prevent another episode of epistaxis. She will adjust her humidity setting and climate line temperature as needed. Obstructive sleep apnea 10/12/2019 Assessment & Plan (12/14/2019 3:32 PM REGISTERED NURSE BONE MARROW TRANSPLANT): She will wear her APAP set from 4-20 cm water pressure nightly. She will try to increase her sleep time to 7-8 hours nightly. Reviewed with the patient that untreated sleep apnea can increased risk of irregular heart rhythm, congestive heart failure, heart attack and stroke. Assessment & Plan (10/12/2019 4:31 PM REGISTERED NURSE BONE MARROW TRANSPLANT): Reviewed and discussed with the patient that [...] 019 Assessment & Plan (10/12/2019 4:31 PM REGISTERED NURSE BONE MARROW TRANSPLANT): Reviewed and discussed with the patient that [...] 08/18/2019 Assessment & Plan (12/14/2019 3:33 PM REGISTERED NURSE BONE MARROW TRANSPLANT): She will practice good health habits trying to eat more vegetables, fruit and lean protein her diet to help promote weight loss. Assessment & Plan (10/12/2019 4:31 PM REGISTERED NURSE BONE MARROW TRANSPLANT): Reviewed and discussed with the patient that [...] on file Legal Sex Female 11:52 PM REGISTERED NURSE BONE MARROW TRANSPLANT Gender Identity Female 08/14/2020 7:08 AM CDT [...] on file Medical Devices Implanted Type Area Manager Product Device Identifier Shelf Expiration Date Model / Serial / Lot [employer] Artillery Officer Tissue 15x13.8cm Breast 600-720cc Smooth Srfc Allox2-Fh15se - [id number] - [id number] Implanted:Qty: 1 on 08/31/2024 by Betsy Caballero MD PhD at [facility] Breast Left: Breast [employer] ALLOX2-F H15SE / [id number] / [employer] Magtrace Liquid Marker 10 Vial Carton [id number] - [id number] Implanted:Qty: 1 on 08/31/2024 by Federico, Betsy Marc MD PhD at [facility] Other - see comments Right: Breast [employer] 08/31/2026 [id number] / / [id number] Breast Biopsy Marker Breast [employer] Eviva 13cm Identifier Biopsy Site [id number] - [id number] Implanted:Qty: 1 on 04/25/2024 at [facility] Pager [facility] Partnership [id number] 12/26/2025 [facility] EDDIE-13 / / [id number] [employer] Air Defense Artillery Officer Tissue 15x13.8cm Breast 600-720cc Smooth Srfc Allox2-Fh15se - [id number] - [id number] Implanted:Qty: 1 on 08/31/2024 by Betsy Caballero MD PhD at [facility] Right: Breast [employer] ALLOX2-F H15SE / [id number] / Procedures Procedure Name Priority Date/Time [...] compared to prior imaging studies performed at [facility] on 03/30/2020, 03/10/2021 and [...] compared to prior imaging studies performed at [facility] on 03/30/2020, 03/10/2021 and [...] Gender: Female Attending MD: Josue Siddiqui Room: [facility] ENDOSCOPY ROOM 4 Note Status: Addendum [...] The scope was passed under direct vision.The [id number] endoscope was introduced throughthe anus and advanced to the cecum, identified by appendiceal orifice and ileocecal valve. The colonoscopy was performed without difficulty. The patient tolerated the procedure well. The quality of the bowel preparation was evaluated using the BBPS ([place] Bowel Preparation Scale) with scores of:Right Colon [...] performed your colonoscopy will recommend follow-up colonoscopy to[place]ale based on current guidelines by gastroenterology societies: [...] On: 05/20/2020 1:08 PM Recognized by the [place] [employer] for promoting quality in endoscopy Addendum Number: 1 Addendum Date: 05/20/2020 1:50:08 PM - Restart Xarelto tomorrow. Electronically signed by Chirag Das MD Chirag Das M.D. 05/20/2020 1:50:32 PM . Chirag Das MD ENDOSCOPY PROCEDUR ES Edited Result - Final from Last 3 Months or Most Recently Relevant to Health Maintenance Insurance [facility] ACCESS CHOICE [employer] CHOICE [employer] Advance Directives For more information, please contact: [phone] * Full Code (Latest Code Status on File) Date Activated Date Inactivated Comments 08/31/2024 6:32 PM 09/01/2024 6:02 PM * Full Code Date Activated Date Inactivated Comments 05/20/2020 12:19 PM 05/20/2020 7:08 PM Care Teams Disability Insurance Hearing Officer Relationship Specialty Start Date End Date Dexter Stanford MD PCP - General Internal Medicine 08/23/20
[2024-12-08] MEDS: ACETAMINOPHEN 500 MG TABLET 1000 MG PO (11:15)
[2024-12-08] MEDS: LACTATED RINGERS 1,000 ML 30 ML IV CONT (11:15)
[2024-12-08] MEDS: KETOROLAC 15 MG/ML VIAL (*BKC) IV PUSH (11:15)
--- NOTE | 2024-12-08 11:16 | P.PNAN_ITS ---
Anes - Initial Pre Proc Eval Procedure: Operation Date: 12/08/24 12:00 Proposed Procedures p Laparoscopic Cholecystectomy, Possible Open - Scar Salmon DO Date/Time: 12/08/24 11:16 Surgeon: Scar Salmon DO Pre Op Diagnosis: sympt cholelithiasis Patient Data Age: 64 Gender: F Height: 1.63 m Weight: 86.4 kg Allergies Allergy/AdvReac Type Severity Reaction Status Date / Time Cephalosporins Allergy Mild HIVES Verified 11/28/24 08:19 Home Medications ?Medication ?Instructions ?Recorded ?Confirmed ?Type diltiazem HCl 120 mg 120 mg PO DAILY 07/22/21 11/28/24 History capsule,extended release 24 hr escitalopram oxalate 20 mg tablet 20 mg PO DAILY 07/22/21 11/28/24 History ascorbic acid (vitamin C) 500 mg 500 mg PO DAILY 06/29/23 11/28/24 History tablet cholecalciferol (vitamin D3) 125 125 mcg PO DAILY 06/29/23 11/28/24 History mcg (5,000 unit) tablet rivaroxaban 20 mg tablet (Xarelto) 20 mg PO DAILY 06/29/23 11/28/24 History calcium citrate 250 mg PO BID 07/02/23 11/28/24 History azelastine 137 mcg (0.1 %) nasal See Rx Instructions .Route 01/18/24 11/28/24 Rx spray .COMPLEX #90 mL biotin 1,000 mcg chewable tablet 1,000 mcg PO DAILY 11/28/24 11/28/24 History ferrous sulfate 325 mg (65 mg 325 mg PO DAILY 11/28/24 11/28/24 History iron) tablet (FeroSul) losartan 100 mg tablet 100 mg PO HS 11/28/24 11/28/24 History multivitamin (Daily Multi-Vitamin 1 tablet PO DAILY 11/28/24 11/28/24 History tablet) omeprazole 20 mg capsule,delayed 20 mg PO BID 11/28/24 11/28/24 History release vitamin A-vitamin C-vit E-min 1 tablet PO DAILY 11/28/24 11/28/24 History tablet (Vision tablet) Patient hx anesthesia problems: none Family hx anesthesia problems: none Results Review: All pre-operative results and documents have been reviewed as part of the pre- operative evaluation. [facility] Past Medical History Medical History (Updated 12/07/24 @ 17:19 by Jun Fallon DO) Atrial fibrillation Sleep apnea Ear drum wound Hypertension Melanoma Headache Left knee pain Colonic polyp Bronchitis Surgical History Surgical History H/O gastric sleeve Dec 2023 H/O breast biopsy H/O section H/O: hysterectomy Family History Family History Father Heart disease Mother Diabetes mellitus Heart disease Cancer of unknown origin Sibling Diabetes mellitus Other Diabetes mellitus Grandparent Cancer of unknown origin Diabetes mellitus Social History Social History Social History: quit smoking 1982 Smoking packs per day: 1 Smoking cigarettes per day: 20.0 Years smoked: 9 Smoking pack-years: 9.00 Smoking status: Never smoker Tobacco type: cigarettes Smoking end date: 11/28/84 Alcohol intake: never Substance use type: does not use Do You Feel Safe in your Home?: Yes Lack of Transportation: No Lack of Food: Never True Current Housing: I Have Housing Concerned About Future Housing: No Difficulty Paying Gas/Electric Bills: No Difficulty Paying for Meds: No Currently Unemployed: No Education: High School Diploma/GED Difficulty w/ Childcare or Family Care: No Living arrangements: with family Gender identity (if verbalized by the patient): Female Spiritual care concerns: No Anes - Eval Final PreProcedure Day of Procedure 12/08/24 11:16 Patient weight: obese Heart: regular rate and rhythm Lungs: clear to auscultation Airway: Mallampati scale class II Neurological: alert and oriented Last oral intake: >/= 8 hours ASA classification: III Emergent: no Anesthetic plan: proceed Anesthesia type and monitoring: general ETT and standard monitoring Results Review: All pre-operative results and documents have been reviewed as part of the pre- operative evaluation. Informed Consent: The patient's anesthetic plan and its attendant risks and benefits were discussed with the patient/family/POA. Questions were solicited and answers provided to the satisfaction of the patient/family/POA.
--- NOTE | 2024-12-08 11:38 | WPDHPUPDATE1 ---
History and Physical Update Update Date/Time: 12/08/24 11:38 History and Physical has been reviewed, including an updated exam of the patient. There are NO changes in the patient's condition. Risks, benefits, and alternatives have been discussed and questions answered. Patient agrees to proceed with procedure.
[2024-12-08] MEDS: CLINDAMYCIN 900 MG/D5W 50 ML 900 MG/50 ML PIGGYBACK 50 MG IVPB (11:58)
[2024-12-08] MEDS: BUPIVACAINE/EPINEPHRINE 0.5% 30 ML VIAL INFILTRATE (12:44)
--- NOTE | 2024-12-08 13:14 | W.PM.PROC2 ---
Procedure Note - Detailed Date of Procedure 12/08/24 Pre-op Diagnosis symptomatic cholelithiasis Post-op Diagnosis Same Procedure Performed Laparoscopic cholecystectomy Surgeon Scar Salmon, DO Anesthesia General and Local (0.5% bupivacaine) Indications This is a 64-year-old woman who presented with upper abdominal pain over the past 2 months. She has had several acute episodes of abdominal pain that eventually resolved. Gallbladder ultrasound showed evidence of cholelithiasis. Discussions were made with the patient about treatment options and decision was made to proceed with laparoscopic cholecystectomy, possible open. Findings Laparoscopic cholecystectomy was performed. The gallbladder was slightly distended and had a few pericholecystic adhesions. The cystic duct appeared normal in size. No other significant intra-abdominal abnormalities were noted. The gallbladder was removed and sent to the lab for pathology. Description of Procedure Procedure as well as risks, benefits, and alternatives were discussed with patient. Written consent was obtained and placed in chart prior to procedure. The patient was brought back to surgical suite. Patient was placed in supine position on operating table. Time-out was done to confirm patient and procedure. Patient was then intubated by the anesthesia department. Abdomen was prepped and draped in sterile fashion using chlorhexidine prep. 0.5% bupivacaine with epinephrine was infiltrated at each site of incision. A 5 millimeter incision was made near the umbilicus, and a 5 millimeter Optiview trocar was advanced through the abdominal layers under direct visualization. Once inside the abdominal cavity, carbon dioxide was insufflated to create a pneumoperitoneum. The camera was inserted and the abdomen was inspected. No immediate abnormalities were identified. The patient was placed in reverse Trendelenburg position and rotated slightly to the left. An 11 millimeter incision was made in the subxiphoid region, and an 11 millimeter trocar was inserted under direct visualization. Two 5 millimeter incisions were made in the right upper quadrant, and two 5 millimeter trocars were inserted under direct visualization. The gallbladder was identified and grasped at the fundus and retracted superiorly. It was then grasped at the infundibulum retracted laterally. Careful dissection around the neck of the gallbladder was performed using blunt dissection with a [place] grasper and hook electrocautery. The cystic duct was identified, and a window was created behind it. The cystic artery was also identified and a window was created behind it. The critical view of safety was identified, visualizing the cystic duct running directly into the neck of the gallbladder, and the cystic artery running directly into the wall of the gallbladder. A 5 millimeter clip foreign food cook specialty was then used to place 2 clips proximally and 1 clip distally on both the cystic duct and cystic artery. They were then both transected using endoscopic scissors. Once safely away from the param hepatitis, the gallbladder was dissected free from the liver bed using hook electrocautery. Hemostasis was achieved along the way. The gallbladder was removed completely and then removed through the subxiphoid port. The liver bed was then inspected. Hemostasis appeared adequate, and our clips appeared secure. The area was gently irrigated with sterile saline. No other abnormalities were seen. The patient was flattened out in bed, and 1 final inspection was made around the abdominal cavity. The subxiphoid port was removed, and a Antoine Lina cone was used to approximate the fascia with an 0-Vicryl simple interrupted suture. The remaining ports were then removed under direct visualization, the camera was removed, and the pneumoperitoneum was released. The skin of the incisions was approximated using 4-0 Monocryl subcuticular sutures. Exofin glue was applied on top. The patient was then awakened from anesthesia, extubated, and transferred to recovery. Estimated Blood Loss 5 Pathology Yes (Gallbladder) Complications No immediate complications Condition Stable [facility] Billing Surgery - Charge Forward: Surgery Billing
== END 2024-12-08 14:53 | disposition home or self-care (01) ==
PROVIDERS: PCP Internal Medicine; Visit Provider Surgery
PROC: 0FT44ZZ Resection of Gallbladder, Percutaneous Endoscopic Approach (ICD-10-PCS; CPT 47562; principal; 2024-12-08 12:00)
DX: K80.10 Calculus of gallbladder with chronic cholecystitis without obstruction (principal); K82.8 Other specified diseases of gallbladder; I10 Essential (primary) hypertension; I48.91 Unspecified atrial fibrillation; G47.30 Sleep apnea, unspecified; E66.9 Obesity, unspecified; Z68.32 Body mass index [BMI] 32.0-32.9, adult; Z79.01 Long term (current) use of anticoagulants; Z98.890 Other specified postprocedural states; Z98.84 Bariatric surgery status; Z87.891 Personal history of nicotine dependence; Z85.820 Personal history of malignant melanoma of skin; Z86.0100 Personal history of colon polyps, unspecified; Z80.9 Family history of malignant neoplasm, unspecified; Z82.49 Family history of ischemic heart disease and other diseases of the circulatory system
CPT/HCPCS: 47562; 88304; A9270; J1885; J2250; J3010; J7120